=== PATIENT | female | born 1940 | race Caucasian/White ===

== ENCOUNTER 2016-11-01 10:48 | Inpatient (IN) | payer OTHER ==
[~2016-11-01] VITALS: Ht 170.2 cm; Wt 68.1 kg
[2016-11-01] MEDS ORDERED: PRT/20 PO (11:39)
[2016-11-01] MEDS ORDERED: VTMD1000 PO (11:39)
[2016-11-01] MEDS ORDERED: SODIUM CHLORIDE 0.9% 1000ML 1,000 ML IV STA (11:39)
[2016-11-01] MEDS ORDERED: MoRPHine SULFATE 2 MG/ML CARP IV STA (11:39)
[2016-11-01] MEDS ORDERED: FENO1CAP PO (11:39)
[2016-11-01] MEDS ORDERED: MULTCHW PO (11:39)
[2016-11-01] MEDS ORDERED: ONDANSETRON INJ 2 MG/ML 2 ML VIAL IV STA (11:39)
[2016-11-01] MEDS ORDERED: ESCI1TAB6 PO (11:39)
[2016-11-01 11:54] LABS: URINE APPEARANCE CLOUDY (CLEAR); URINE BILIRUBIN NEG (NEG); URINE COLOR DK YELLOW; URINE NITRITE NEG (NEG); URINE SPECIFIC GRAVITY 1.024 (1.000-1.030); UROBILINOGEN NEG (NEG)
[2016-11-01 12:10] LABS: MANUAL MICROSCOPIC REQUIRED? NO; REVIEW REQ? NO
[2016-11-01 12:24] LABS: BASO % 0.2 %; BASO ABS # 0.01 K/uL (0-0.2); COMPLETE YES; HEMATOCRIT 34.9 % (37-47); IG% 0.2 %; LYMPH % 14.7 %; MEAN CELL VOLUME 93.6 fL (80-100); MEAN CORPUSCULAR HEMOGLOBIN 33.2 pg (25-34); MEAN CORPUSCULAR HGB CONC 35.5 g/dl (32-36); MEAN PLATELET VOLUME 9.9 fL (7.4-10.4); NEUT % 79.9 %; PLATELET COUNT 131 K/uL (130-400); RED BLOOD COUNT 3.73 M/uL (4.2-5.4); WHITE BLOOD COUNT 5.43 K/uL (4.8-10.8)
[2016-11-01] MEDS ORDERED: PRMVC PV (12:28)
[2016-11-01] MEDS ORDERED: FENO160T PO (12:28)
[2016-11-01] MEDS ORDERED: ESCI10TA17 PO (12:28)
[2016-11-01] MEDS ORDERED: FLUT0.15 NAE (12:28)
[2016-11-01] MEDS ORDERED: DTRSR/10 PO (12:28)
[2016-11-01] MEDS ORDERED: PANT40TA PO (12:28)
[2016-11-01 12:43] LABS: ALT/SGPT 34 U/L (12-78); BLOOD UREA NITROGEN 14 mg/dl (7-18); BUN/CREATININE RATIO 12.5 (10-20); CALCIUM 8.8 mg/dl (8.5-10.1); CARBON DIOXIDE 25 mmol/L (21-32); CHLORIDE 103 mmol/L (98-107); GLUCOSE 103 mg/dl (70-99); POTASSIUM 3.8 mmol/L (3.5-5.1); SODIUM 135 mmol/L (136-145)
[2016-11-01 12:48] LABS: ALKALINE PHOSPHATASE 39 U/L (45-117); AST/SGOT 42 U/L (15-37)
--- NOTE | 2016-11-01 13:15 | DIAGNOSTIC IMAGING REPORT ---
CHEST 2 VIEWS ROUTINE CLINICAL HISTORY: Right upper quadrant abdominal pain. COMPARISON STUDY: No previous studies for comparison. FINDINGS: Lung volumes are normal. Lungs are clear. No pneumothorax or pleural effusion is present. Cardiac size is normal. Mediastinal contours are normal. There is no evidence of pulmonary edema. IMPRESSION: No acute cardiopulmonary findings. Electronically signed by: Wei Smart M.D. 11/01/2016 1:14 PM Dictated Date/Time: 11/01/2016 1:13 PM
--- NOTE | 2016-11-01 14:03 | DIAGNOSTIC IMAGING REPORT ---
ABDOMINAL ULTRASOUND, RIGHT UPPER QUADRANT HISTORY: Abdominal pain. COMPARISON: None. FINDINGS: Liver morphology is normal. A 1.1 cm left lobe lesion likely reflects a cyst. Internal echoes within this lesion are likely artifactual. There is no biliary ductal dilatation. The common bile duct measures 6 mm in caliber. The pancreas body is normal. The head and tail are obscured. Gallbladder wall thickness is at the upper limits of normal. No gallstones are identified. There is no pericholecystic fluid. There may be minimal sludge within the gallbladder. There is no right hydronephrosis. IMPRESSION: 1. No gallstones or biliary ductal dilatation. 2. Minimal sludge within the gallbladder with mild gallbladder distention. No convincing evidence for acute cholecystitis. Electronically signed by: Wei Smart M.D. 11/01/2016 2:01 PM Dictated Date/Time: 11/01/2016 1:59 PM
--- NOTE | 2016-11-01 14:03 | EMERGENCY ROOM VISIT NOTE ---
ED Visit Note First contact with patient: 11:03 I have personally evaluated this patient examined her and reviewed the pertinent labs and data. I have discussed the case with Benja Brantley, the physician critical care physician assistant and agree with the plan. Please refer to the PA note. This patient comes in with fever and abdominal pain most in the right upper abdomen. She has no elevation of her white count she does have a fever here. LFTs are not elevated. Ultrasound was obtained and does show some mild thickening and distention but no definite acute cholecystitis. On my exam, she does have some tenderness in the epigastric area. Given the fever I did give her Zosyn 4.5 g IV. We also ordered a CAT scan. Benja Brantley has talked to Dr. Underwood who has requested oral contrast. He has seen the patient in the emergency department. I believe the patient will need to be admitted for further treatment and evaluation.
[2016-11-01] MEDS ORDERED: PIPERACILLIN/TAZOBACTAM 4.5 GM/100ML D5W IV STA (14:37)
--- NOTE | 2016-11-01 17:41 | DIAGNOSTIC IMAGING REPORT ---
CT ABD/PELVIS ORAL CONT ONLY CT DOSE: 327.17 mGy.cm CLINICAL HISTORY: Epigastric and right upper quadrant pain. Fever. TECHNIQUE: Axial images of the abdomen and pelvis were obtained without IV contrast. Oral contrast was administered. COMPARISON STUDY: Right upper quadrant ultrasound performed earlier today. FINDINGS: Linear opacities within visualized portions the lower lungs reflect atelectasis. There is a small hiatal hernia. No pneumatosis, free air or portal venous gas is present. No renal, ureteral or bladder calculi are present. There is no hydronephrosis. There is a suspected right sided extrarenal pelvis. A 1.1 cm hypodense lateral segment hepatic lesion is suboptimally assessed on this exam but shown to likely reflect a cyst on ultrasound. The gallbladder is mildly distended. However, the gallbladder does not deform the anterior abdominal wall. There is no pericholecystic infiltration. Unenhanced images of the spleen, adrenal glands and pancreas are normal. There is no peripancreatic infiltration. There is no evidence for a bowel obstruction. The appendix is not visualized. There is no lymphadenopathy or ascites. No suspicious skeletal lesions are identified. There is a small fat-containing umbilical hernia. IMPRESSION: 1. Mild gallbladder distention without pericholecystic infiltration. The findings are not highly suggestive of acute cholecystitis although a hepatobiliary scan could be obtained if clinically indicated. 2. No urinary calculi or hydronephrosis. 3. No bowel obstruction. 4. Probable fatty infiltration of the liver. Electronically signed by: Wei Smart M.D. 11/01/2016 5:39 PM Dictated Date/Time: 11/01/2016 5:32 PM
[2016-11-01] MEDS ORDERED: ACETAMINOPHEN 500 MG TAB PO STA (18:11)
--- NOTE | 2016-11-01 18:13 | Surgery Consultation ---
Consultation Date of Consultation: Nov 01, 2016. Attending Physician: Tim Vincent MD Reason for Consultation: Abdominal pain History of Present Illness I was asked to 75-year-old female who presented to the emergency room with a complaint of abdominal pain. The patient states that the initial pain that she had been having began about a month ago. The pain has been present to some degree almost all the time although she does have certain periods of time without discomfort. It is initially a dull ache but then she will develop paroxysms of increased intensity in the subcostal regions bilaterally although the right is somewhat worse than the left. She thinks that eating causes the increased discomfort but she has not noted any particular food type that is worse than others. She has not had a change in her bowel habits. There is no melena or hematochezia. She did have a fever although she did not take her temperature. She is passing her urine. Over the last week or 2 she has had intermittent dysuria but no hematuria. She stated that she has had jaundice as a young woman but is never had hepatitis or pancreatitis. She is unsure as to the etiology of the jaundice. At present the pain has resolved. She is also no longer tender. Social History Smoking Status: Never Smoker Smokeless Tobacco Use: No Allergies Coded Allergies: Iodine (Unverified Allergy, Intermediate, HIVES, 11/01/16) Home Medications Scheduled Escitalopram (Lexapro), 10 MG PO DAILY Estrogens, Conjugated (Premarin), 1 GM PV 3XWK Fenofibrate (Tricor), 160 MG PO DAILY Fluticasone Propionate (Nasal) (Flonase Allergy Relief), 2 SPRAYS SARAHI DAILY Oxybutynin Chloride (Oxybutynin Chloride ER), 10 MG PO DAILY Pantoprazole (Protonix), 40 MG PO DAILY Review of Systems Constitutional: + fever (unsure how high) Respiratory: No cough, No sputum Cardiovascular: No chest pain Abdomen: + problem reported (as per HPI) Genitourinary - Female: + problem reported (as per HPI) Hematologic / Lymphatic: No abnormal bleeding/bruising Integumentary: No rash Physical Exam Date Time Temp Pulse Resp B/P (MAP) Pulse Ox O2 Delivery O2 Flow Rate FiO2 11/01/16 17:27 77 18 142/59 93 Room Air 11/01/16 16:50 78 20 130/58 94 Room Air 11/01/16 16:10 80 11/01/16 14:47 81 16 138/80 92 Room Air 11/01/16 14:07 16 137/112 98 153/59 11/01/16 13:20 74 18 143/76 93 Room Air 11/01/16 12:30 139/67 11/01/16 12:28 67 18 93 11/01/16 12:23 73 23 93 11/01/16 12:18 71 20 89 11/01/16 12:15 138/60 11/01/16 12:13 72 18 92 11/01/16 12:09 75 11/01/16 12:00 140/65 11/01/16 10:58 38.1 69 18 117/68 95 Room Air General Appearance: WD/WN Head: normocephalic Neck: supple, no adenopathy Respiratory/Chest: chest non-tender, lungs clear Cardiovascular: regular rate, rhythm Abdomen/GI: normal bowel sounds, soft, no organomegaly, + tenderness (mild tenderness to deep palpation in the right subcostal and left subcostal regions. There are no palpable masses. There is also tenderness in the suprapubic area over the bladder.) Back: normal inspection, no CVA tenderness Skin: normal color Laboratory Results Last 24 Hours Test 11/01/16 11:15 11/01/16 12:05 Urine Color DK YELLOW Urine Appearance CLOUDY Urine pH 6.0 Urine Specific [place] 1.024 Urine Protein 2+ Urine Glucose (UA) NEG Urine Ketones TRACE Urine Occult Blood 2+ Urine Nitrite NEG Urine Bilirubin NEG Urine Urobilinogen NEG Urine Leukocyte Esterase LARGE Urine WBC (Auto) >30 /hpf Urine RBC (Auto) 10-30 /hpf Urine Hyaline Casts (Auto) 1-5 /lpf Urine Epithelial Cells (Auto) 5-10 /lpf Urine Bacteria (Auto) NEG White Blood Count 5.43 K/uL Red Blood Count 3.73 M/uL Hemoglobin 12.4 g/dL Hematocrit 34.9 % Mean Corpuscular Volume 93.6 fL Mean Corpuscular Hemoglobin 33.2 pg Mean Corpuscular Hemoglobin Concent 35.5 g/dl Platelet Count 131 K/uL Mean Platelet Volume 9.9 fL Neutrophils (%) (Auto) 79.9 % Lymphocytes (%) (Auto) 14.7 % Monocytes (%) (Auto) 5.0 % Eosinophils (%) (Auto) 0.0 % Basophils (%) (Auto) 0.2 % Neutrophils # (Auto) 4.34 K/uL Lymphocytes # (Auto) 0.80 K/uL Monocytes # (Auto) 0.27 K/uL Eosinophils # (Auto) 0.00 K/uL Basophils # (Auto) 0.01 K/uL RDW Standard Deviation 46.1 fL RDW Coefficient of Variation 13.4 % Immature Granulocyte % (Auto) 0.2 % Immature Granulocyte # (Auto) 0.01 K/uL Sodium Level 135 mmol/L Potassium Level 3.8 mmol/L Chloride Level 103 mmol/L Carbon Dioxide Level 25 mmol/L Anion Gap 7.0 mmol/L Blood Urea Nitrogen 14 mg/dl Creatinine 1.10 mg/dl Est Creatinine Clear Calc Drug Dose 43.0 ml/min Estimated GFR () 56.9 Estimated GFR (Non- 49.1 BUN/Creatinine Ratio 12.5 Random Glucose 103 mg/dl Calcium Level 8.8 mg/dl Total Bilirubin 0.6 mg/dl Direct Bilirubin 0.2 mg/dl Aspartate Amino Transf (AST/SGOT) 42 U/L Alanine Aminotransferase (ALT/SGPT) 34 U/L Alkaline Phosphatase 39 U/L Troponin I < 0.015 ng/ml Total Protein 6.9 gm/dl Albumin 3.6 gm/dl Lipase 169 U/L ABDOMINAL ULTRASOUND, RIGHT UPPER QUADRANT HISTORY: Abdominal pain. COMPARISON: None. FINDINGS: Liver morphology is normal. A 1.1 cm left lobe lesion likely reflects a cyst. Internal echoes within this lesion are likely artifactual. There is no biliary ductal dilatation. The common bile duct measures 6 mm in caliber. The pancreas body is normal. The head and tail are obscured. Gallbladder wall thickness is at the upper limits of normal. No gallstones are identified. There is no pericholecystic fluid. There may be minimal sludge within the gallbladder. There is no right hydronephrosis. IMPRESSION: 1. No gallstones or biliary ductal dilatation. 2. Minimal sludge within the gallbladder with mild gallbladder distention. No convincing evidence for acute cholecystitis. CT ABD/PELVIS ORAL CONT ONLY CT DOSE: 327.17 mGy.cm CLINICAL HISTORY: Epigastric and right upper quadrant pain. Fever. TECHNIQUE: Axial images of the abdomen and pelvis were obtained without IV contrast. Oral contrast was administered. COMPARISON STUDY: Right upper quadrant ultrasound performed earlier today. FINDINGS: Linear opacities within visualized portions the lower lungs reflect atelectasis. There is a small hiatal hernia. No pneumatosis, free air or portal venous gas is present. No renal, ureteral or bladder calculi are present. There is no hydronephrosis. There is a suspected right sided extrarenal pelvis. A 1.1 cm hypodense lateral segment hepatic lesion is suboptimally assessed on this exam but shown to likely reflect a cyst on ultrasound. The gallbladder is mildly distended. However, the gallbladder does not deform the anterior abdominal wall. There is no pericholecystic infiltration. Unenhanced images of the spleen, adrenal glands and pancreas are normal. There is no peripancreatic infiltration. There is no evidence for a bowel obstruction. The appendix is not visualized. There is no lymphadenopathy or ascites. No suspicious skeletal lesions are identified. There is a small fat-containing umbilical hernia. IMPRESSION: 1. Mild gallbladder distention without pericholecystic infiltration. The findings are not highly suggestive of acute cholecystitis although a hepatobiliary scan could be obtained if clinically indicated. 2. No urinary calculi or hydronephrosis. 3. No bowel obstruction. 4. Probable fatty infiltration of the liver. Assessment & Plan This patient has abdominal pain and fever. Her tenderness is more in the lower abdomen and suprapubic area. She does have white cells and red cells in her urine as well as leukocyte esterase. This was related to a urinary tract infection. She does have right upper quadrant pain that she has had for about a month that is intermittent and may be exacerbated by eating. There was sludge in her gallbladder but there is no evidence of acute cholecystitis. Biliary scan may be in order. There is no immediate surgical intervention necessary at this time. Thank you for allowing me to see this patient and participate in her care. I will follow with you.
[2016-11-01] MEDS ORDERED: ACETAMINOPHEN IV 650 MG in EMPTY BAG 0 ML IV PRN (19:00)
[2016-11-01] MEDS ORDERED: ALUMINUM/MAGNESIUM/SIMETH (MAALOX MAX) 30 ML UDC PO PRN (19:00)
[2016-11-01] MEDS ORDERED: MAGNESIUM HYDROXIDE SUSP 30 ML UDC PO PRN (19:00)
--- NOTE | 2016-11-01 19:05 | History and Physical ---
History & Physical Date & Time of Service: Nov 01, 2016 at 18:57 Chief Complaint: Pain In Stomach Towards Right Side Primary Care Physician: Teo Serrano MD History of Present Illness The patient presents to the ER with episodic abdominal pain for last few months. She had fairly complete evaluation and there was initially some concern for cholecystitis. The gallbladder does contain sludge and is mildly distended, however there is no pericholecystic fluid common bile duct dilatation elevation of blood cell count. Clinically her pain is more central, she is a markedly abnormal urinalysis, and a fever of 39C. The patient was evaluated in the ER by surgery, he did not feel she had an acute abdomen or acute cholecystitis, there was mention of a HIDA scan however the patient has normal liver function tests and I personally spoke with Dr. Underwood and he does not feel we perform a HIDA scan over the weekend but only if her clinical situation would correlate more with cholecystitis. In the room the patient is sleepy she received some pain medication and Tylenol and over the last few days because of nausea and vomiting she has not been sleeping well. The patient denies that her vomitus over the last 2 days contain any blood or coffee-ground and she had brown loose stools this a.m. She denies dysuria or hematuria or urinary changes decreased in amount. Past Medical/Surgical History Urinary urgency GERD dyslipidemia depression allergic rhinitis Family History She is a family history of hypertension Social History Smoking Status: Never Smoker Smokeless Tobacco Use: No Allergies Coded Allergies: Iodine (Unverified Allergy, Intermediate, HIVES, 11/01/16) Home Medications Scheduled Escitalopram (Lexapro), 10 MG PO DAILY Estrogens, Conjugated (Premarin), 1 GM PV 3XWK Fenofibrate (Tricor), 160 MG PO DAILY Fluticasone Propionate (Nasal) (Flonase Allergy Relief), 2 SPRAYS SARAHI DAILY Oxybutynin Chloride (Oxybutynin Chloride ER), 10 MG PO DAILY Pantoprazole (Protonix), 40 MG PO DAILY Review of Systems ROS: well nourished well developed No double vision blurry vision No problems with speech or swallowing No palpitations, chest pain or pressure No Wheezing or breathing issues Moderate central abdominal pain nausea vomiting diarrhea but no changes in appetite or weight No burning urine urine frequency or changes in color but less urine No focal joint pain or muscle pain No skin rashes gross oral lesions No unusual bruising or bleeding No focused back pain or numbness or loss of strength No changes in memory or confusion Physical Exam Vital Signs Date Time Temp Pulse Resp B/P (MAP) Pulse Ox O2 Delivery O2 Flow Rate FiO2 11/01/16 18:04 39.5 11/01/16 17:27 77 18 142/59 93 Room Air 11/01/16 16:50 78 20 130/58 94 Room Air 11/01/16 16:10 80 11/01/16 14:47 81 16 138/80 92 Room Air 11/01/16 14:07 16 137/112 98 153/59 11/01/16 13:20 74 18 143/76 93 Room Air 11/01/16 12:30 139/67 11/01/16 12:28 67 18 93 11/01/16 12:23 73 23 93 11/01/16 12:18 71 20 89 11/01/16 12:15 138/60 11/01/16 12:13 72 18 92 11/01/16 12:09 75 11/01/16 12:00 140/65 11/01/16 10:58 38.1 69 18 117/68 95 Room Air General Appearance: WD/WN, + mild distress Head: normocephalic, atraumatic Eyes: PERRL, EOMI Neck: supple, thyroid normal Respiratory/Chest: chest non-tender, lungs clear, normal breath sounds Cardiovascular: regular rate, rhythm, no murmur Abdomen/GI: normal bowel sounds, soft, + tenderness (centrally tender in epigastrium and suprapubic area no rebound mild guarding) Back: no CVA tenderness, no muscle spasm, normal range of motion Extremities/Musculoskelatal: no pedal edema, normal range of motion Neurologic/Psych: alert, oriented x 3 Skin: normal color, warm/dry, no rash Diagnostics Laboratory Results Results Past 24 Hours Test 11/01/16 11:15 11/01/16 12:05 Range/Units Urine Color DK YELLOW Urine Appearance CLOUDY CLEAR Urine pH 6.0 4.5-7.5 Urine Specific [place] 1.024 1.000-1.030 Urine Protein 2+ NEG Urine Glucose (UA) NEG NEG Urine Ketones TRACE NEG Urine Occult Blood 2+ NEG Urine Nitrite NEG NEG Urine Bilirubin NEG NEG Urine Urobilinogen NEG NEG Urine Leukocyte Esterase LARGE NEG Urine WBC (Auto) >30 0-5 /hpf Urine RBC (Auto) 10-30 0-4 /hpf Urine Hyaline Casts (Auto) 1-5 0-5 /lpf Urine Epithelial Cells (Auto) 5-10 0-5 /lpf Urine Bacteria (Auto) NEG NEG White Blood Count 5.43 4.8-10.8 K/uL Red Blood Count 3.73 4.2-5.4 M/uL Hemoglobin 12.4 12.0-16.0 g/dL Hematocrit 34.9 37-47 % Mean Corpuscular Volume 93.6 80-100 fL Mean Corpuscular Hemoglobin 33.2 25-34 pg Mean Corpuscular Hemoglobin Concent 35.5 32-36 g/dl Platelet Count 131 130-400 K/uL Mean Platelet Volume 9.9 7.4-10.4 fL Neutrophils (%) (Auto) 79.9 % Lymphocytes (%) (Auto) 14.7 % Monocytes (%) (Auto) 5.0 % Eosinophils (%) (Auto) 0.0 % Basophils (%) (Auto) 0.2 % Neutrophils # (Auto) 4.34 1.4-6.5 K/uL Lymphocytes # (Auto) 0.80 1.2-3.4 K/uL Monocytes # (Auto) 0.27 0.11-0.59 K/uL Eosinophils # (Auto) 0.00 0-0.5 K/uL Basophils # (Auto) 0.01 0-0.2 K/uL RDW Standard Deviation 46.1 36.4-46.3 fL RDW Coefficient of Variation 13.4 11.5-14.5 % Immature Granulocyte % (Auto) 0.2 % Immature Granulocyte # (Auto) 0.01 0.00-0.02 K/uL Sodium Level 135 136-145 mmol/L Potassium Level 3.8 3.5-5.1 mmol/L Chloride Level 103 98-107 mmol/L Carbon Dioxide Level 25 21-32 mmol/L Anion Gap 7.0 3-11 mmol/L Blood Urea Nitrogen 14 7-18 mg/dl Creatinine 1.10 0.60-1.20 mg/dl Est Creatinine Clear Calc Drug Dose 43.0 ml/min Estimated GFR () 56.9 Estimated GFR (Non- 49.1 BUN/Creatinine Ratio 12.5 10-20 Random Glucose 103 70-99 mg/dl Calcium Level 8.8 8.5-10.1 mg/dl Total Bilirubin 0.6 0.2-1 mg/dl Direct Bilirubin 0.2 0-0.2 mg/dl Aspartate Amino Transf (AST/SGOT) 42 15-37 U/L Alanine Aminotransferase (ALT/SGPT) 34 12-78 U/L Alkaline Phosphatase 39 45-117 U/L Troponin I < 0.015 0-0.045 ng/ml Total Protein 6.9 6.4-8.2 gm/dl Albumin 3.6 3.4-5.0 gm/dl Lipase 169 73-393 U/L Microbiology Results 11/01/16 Blood Culture, Received Pending 11/01/16 Blood Culture, Received Pending Diagnostic Radiology Ultrasound and CT of the abdomen showed biliary sludge no signs of acute cholecystitis CXR normal other (normal sinus rhythm inferior T-wave inversion nonspecific) Impression Assessment and Plan 75-year-old female who presents with fever, initial concerns for cholecystitis are not supported, abnormal urinalysis. The patient was begun on Zosyn and we will continue this for possible UTI and the beginnings of SIRS. We will hydrate with normal saline urine and blood cultures pending The patient had a surgical consult in the ER recommends HIDA scan if LFTs would worsen or clinical picture correlates with acute cholecystitis GERD continue her Protonix Maintain an antidepressant medication Heparin for DVT prevention VTE Prophylaxis VTE Risk Assessment Done? Y/N: Yes Risk Level: Moderate
[2016-11-01] MEDS ORDERED: PIPERACILL/TAZOBAC CONSULT ACTIVE PRN (19:15)
[2016-11-01 19:18] LABS: INR 1.1 (0.9-1.1); PARTIAL THROMBOPLASTIN RATIO 1.1; PROTHROMBIN TIME (PATIENT) 11.9 SECONDS (9.0-12.0)
--- NOTE | 2016-11-01 19:20 | EMERGENCY ROOM VISIT NOTE ---
ED Visit Note First contact with patient: 11:03 Chief Complaint: I think my gallbladder is not working right. History of Present Illness: Ms. Rubin is a 75 year-old white female who ambulates into the ED accompanied by her complaining of upper abdominal pain. Historically patient reports she has been having ongoing upper abdominal pain for approximately 3 months. Her has been episodic and not severe. She has not followed up for evaluation prior to today's ED visit. Additionally she does report that she has been also having increased urinary frequency and was seen by a urologist and has been prescribed Premarin for her symptoms. Since starting this medication she reports she is feeling better. Patient reports a gradual onset of upper abdominal pain, with epigastric and right sided prominence, that started approximately 18 hours ago. Since that time the pain has been gradually increasing in intensity and has also waxed and waned in intensity but she has not been pain-free. The pain is currently described as achy sensation and then her discomforts by spikes and her discomfort becomes crampy. She is rating her discomfort 5/10. The pain is radiating through the abdomen and into the thoracic back. The pain worsens with eating and standing. Her pain decreases when she is lying down either supine or semierect. She reports taking acetaminophen last night and had mild relief of her discomfort. Associated with her pain she has been intermittently nauseated but has not vomited, increased urination without burning or hematuria and she reports last night she felt febrile but did not take her temperature. She denies chills, sweats, skin eruptions, skin color changes, upper respiratory tract symptoms, shortness of breath, chest pain, diarrhea, constipation, rectal bleeding, black/tarry stools, urinary symptoms, hematuria, vaginal bleeding, vaginal discharge, flank pain. Review of Systems: As noted above in history of present illness. All body systems were reviewed and found to be negative as noted above. Past Medical History: As previously noted, GERD, ongoing urinary symptoms; has seen a specialist and testing is continual and no cause has been identified for increased urinary frequency, status post tubal ligation and bunionectomy. Current Medications: Flonase, Lexapro, Premarin, TriCor, Oxybutynin, Protonix. Allergies to Medications: Iodine. Social History: Patient is currently employed; she lives with her and feels safe in her home environment; she denies tobacco and alcohol use. Physical Examination: Vital Signs: Date Time Temp Pulse Resp B/P (MAP) Pulse Ox O2 Delivery O2 Flow Rate FiO2 11/01/16 18:04 39.5 11/01/16 17:27 77 18 142/59 93 Room Air 11/01/16 16:50 78 20 130/58 94 Room Air 11/01/16 16:10 80 11/01/16 14:47 81 16 138/80 92 Room Air 11/01/16 14:07 16 137/112 98 153/59 11/01/16 13:20 74 18 143/76 93 Room Air 11/01/16 12:30 139/67 11/01/16 12:28 67 18 93 11/01/16 12:23 73 23 93 11/01/16 12:18 71 20 89 11/01/16 12:15 138/60 11/01/16 12:13 72 18 92 11/01/16 12:09 75 11/01/16 12:00 140/65 11/01/16 10:58 38.1 69 18 117/68 95 Room Air GENERAL: 75-year-old female in mild distress due to pain, nontoxic-appearing, febrile and hemodynamically stable. NEUROLOGICAL: Awake, alert and oriented to person, place and time. Answering questions appropriately and following commands. Normal gait. Good hand eye coordination. SKIN: Warm, dry and pink. No soft tissue eruptions or trauma noted. HEENT: Atraumatic and normocephalic. PERRLA. Sclera white and conjunctiva pink. Airway patent. Pharynx is nonerythematous or edematous. Speech normal. No lymphadenopathy. Trachea midline. No jugular venous distention. BACK: No tenderness over the bony spine. No CVA tenderness. THORAX: Lungs sounds are clear to auscultation and equal bilaterally with symmetrical chest wall. No wheezing, rales or rhonchi. No crepitus, tenderness , subcutaneous air or deformities noted. HEART: Regular rate and rhythm. No gallops, rubs or murmurs are appreciated. ABDOMEN: Flat and soft with moderate tenderness in the epigastrium and right upper quadrant and mild tenderness in the left upper quadrant and left lower quadrant. Positive bowel sounds in all quadrants. No guarding, rigidity or organomegaly. EXTREMITIES: Moves all extremities well on command and with purpose. All distal neurovascular statuses are intact and equal bilaterally. ED Course: Patient is assessed as noted above. Patient's medication list was reviewed. Laboratory Testing: Test 11/01/16 11:15 11/01/16 12:05 Range/Units Urine Color DK YELLOW Urine Appearance CLOUDY CLEAR Urine pH 6.0 4.5-7.5 Urine Specific [place] 1.024 1.000-1.030 Urine Protein 2+ NEG Urine Glucose (UA) NEG NEG Urine Ketones TRACE NEG Urine Occult Blood 2+ NEG Urine Nitrite NEG NEG Urine Bilirubin NEG NEG Urine Urobilinogen NEG NEG Urine Leukocyte Esterase LARGE NEG Urine WBC (Auto) >30 0-5 /hpf Urine RBC (Auto) 10-30 0-4 /hpf Urine Hyaline Casts (Auto) 1-5 0-5 /lpf Urine Epithelial Cells (Auto) 5-10 0-5 /lpf Urine Bacteria (Auto) NEG NEG White Blood Count 5.43 4.8-10.8 K/uL Red Blood Count 3.73 4.2-5.4 M/uL Hemoglobin 12.4 12.0-16.0 g/dL Hematocrit 34.9 37-47 % Mean Corpuscular Volume 93.6 80-100 fL Mean Corpuscular Hemoglobin 33.2 25-34 pg Mean Corpuscular Hemoglobin Concent 35.5 32-36 g/dl Platelet Count 131 130-400 K/uL Mean Platelet Volume 9.9 7.4-10.4 fL Neutrophils (%) (Auto) 79.9 % Lymphocytes (%) (Auto) 14.7 % Monocytes (%) (Auto) 5.0 % Eosinophils (%) (Auto) 0.0 % Basophils (%) (Auto) 0.2 % Neutrophils # (Auto) 4.34 1.4-6.5 K/uL Lymphocytes # (Auto) 0.80 1.2-3.4 K/uL Monocytes # (Auto) 0.27 0.11-0.59 K/uL Eosinophils # (Auto) 0.00 0-0.5 K/uL Basophils # (Auto) 0.01 0-0.2 K/uL RDW Standard Deviation 46.1 36.4-46.3 fL RDW Coefficient of Variation 13.4 11.5-14.5 % Immature Granulocyte % (Auto) 0.2 % Immature Granulocyte # (Auto) 0.01 0.00-0.02 K/uL Sodium Level 135 136-145 mmol/L Potassium Level 3.8 3.5-5.1 mmol/L Chloride Level 103 98-107 mmol/L Carbon Dioxide Level 25 21-32 mmol/L Anion Gap 7.0 3-11 mmol/L Blood Urea Nitrogen 14 7-18 mg/dl Creatinine 1.10 0.60-1.20 mg/dl Est Creatinine Clear Calc Drug Dose 43.0 ml/min Estimated GFR () 56.9 Estimated GFR (Non- 49.1 BUN/Creatinine Ratio 12.5 10-20 Random Glucose 103 70-99 mg/dl Calcium Level 8.8 8.5-10.1 mg/dl Total Bilirubin 0.6 0.2-1 mg/dl Direct Bilirubin 0.2 0-0.2 mg/dl Aspartate Amino Transf (AST/SGOT) 42 15-37 U/L Alanine Aminotransferase (ALT/SGPT) 34 12-78 U/L Alkaline Phosphatase 39 45-117 U/L Troponin I < 0.015 0-0.045 ng/ml Total Protein 6.9 6.4-8.2 gm/dl Albumin 3.6 3.4-5.0 gm/dl Lipase 169 73-393 U/L Blood Culture: Pending. Urine Culture: Pending. Chest X-Rays: Was read by myself and the radiologist and shows no acute infiltrates, effusions or pneumothorax. Normal heart silhouette and bony anatomy. No free air under the diaphragm. Right Upper Quadrant Ultrasound: Was reviewed by myself and read by the radiologist showing no gallstones or biliary duct dilatation, minimal sludge with mild gallbladder distention. Oral Contrast Abdominal/Pelvic CT: Was reviewed by myself and read by the radiologist showing mild gallbladder distention without infiltration, no uterine calculus or hydronephrosis, no bowel obstruction and probable fatty infiltration of the liver. EKG: Normal sinus rhythm with a ventricular rate of 71 bpm. Normal axis, intervals and complexes. No acute ST changes indicating ischemia, injury or infarction. Patient was hydrated with normal saline and initially received 2 mg of morphine IV for pain and 4 mg of Zofran IV for nausea. Patient was reassessed multiple times during her stay in the emergency department. Patient's case was reviewed with Dr. Vincent; inability assessed the patient we agreed on diagnostic approach, treatment, disposition and plan. Dr. Vincent ordered the patient to have 3.375 g of Zosyn IV for antibiotic coverage. Patient's case was reviewed with Dr. Underwood, general surgery; he independently assessed the patient and felt the patient wasn't not an immediate surgical candidate and felt she needed a biliary scan. Patient was given 1 g of Tylenol by mouth for her fever. Once again patient's case was reviewed with Dr. Vincent and we agreed because she was febrile she should come into the hospital for at least an observation stay if not admission and have a biliary scan done. Patient's case was consulted with case management and Dr. Zuleta for medical observation/admission. Patient was educated about today's findings. Clinical Impression: Fever. Right upper quadrant pain. Questionable biliary colic. Decision-Making: Initially my differential diagnosis I considered acute coronary syndrome, pneumonia, perforated viscus, cholecystectomy, pancreatitis and other causes. Disposition and Plan: Patient be brought in the hospital by the [facility] hospitalist; please see their notes and orders for final disposition and plan.
[2016-11-01 19:54] VITALS: BP 126/67; PULSE 82; TEMP 37.5; O2SAT 94; Ht 170.2 cm; Wt 68.1 kg
[2016-11-01] MEDS: SODIUM CHLORIDE 0.9% 1000ML 1,000 ML IV SCH (20:25)
[2016-11-01] MEDS: ONDANSETRON INJ 2 MG/ML 2 ML VIAL IV PRN (20:29)
[2016-11-01] MEDS: PIPERACILL/TAZOBAC IV 3.375 GM in DEXTROSE 5% 100ML 100 ML IV SCH (20:59)
[2016-11-01] MEDS: PANTOprazole SOD 40 MG TAB PO SCH (21:00)
[2016-11-01] MEDS: HEPARIN SOD 5000 UNIT/0.5 ML CARP SQ SCH (21:04)
[2016-11-01 23:56] VITALS: BP 112/57; PULSE 66; TEMP 37.3; O2SAT 94
[2016-11-02] MEDS: PIPERACILL/TAZOBAC IV 3.375 GM in DEXTROSE 5% 100ML 100 ML IV SCH ×3 (04:02→19:58)
[2016-11-02] MEDS: SODIUM CHLORIDE 0.9% 1000ML 1,000 ML IV SCH ×2 (04:07→15:26)
[2016-11-02] MEDS: ACETAMINOPHEN 325 MG TAB PO PRN ×2 (04:07→18:20)
[2016-11-02 06:13] LABS: HEMATOCRIT 34.4 % (37-47); MEAN CELL VOLUME 93.2 fL (80-100); MEAN CORPUSCULAR HEMOGLOBIN 32.2 pg (25-34); MEAN CORPUSCULAR HGB CONC 34.6 g/dl (32-36); PLATELET COUNT 127 K/uL (130-400); RED BLOOD COUNT 3.69 M/uL (4.2-5.4); WHITE BLOOD COUNT 5.44 K/uL (4.8-10.8)
[2016-11-02 06:55] LABS: BUN/CREATININE RATIO 9.4 (10-20); CALCIUM 8.4 mg/dl (8.5-10.1); CREATININE 1.1 mg/dl (0.60-1.20); POTASSIUM 3.3 mmol/L (3.5-5.1)
[2016-11-02 06:57] LABS: ALB/GLOB RATIO 1.1 (0.9-2)
[2016-11-02] MEDS: FLUTICASONE PROPIONATE NA SPR 16 GM BTL NAE SCH (07:52)
[2016-11-02] MEDS: PANTOprazole SOD 40 MG TAB PO SCH ×2 (07:52→19:58)
[2016-11-02] MEDS: ESCITALOPRAM OXALATE 10 MG TAB PO SCH (07:53)
[2016-11-02] MEDS: OXYBUTYNIN CHLORIDE 5 MG TABCR PO SCH (07:53)
[2016-11-02 07:56] VITALS: BP 98/56; PULSE 61; TEMP 36.4; O2SAT 95
[2016-11-02] MEDS ORDERED: POTASSIUM CHLORIDE 10 MEQ TABCR PO STA (08:03)
[2016-11-02] MEDS: HEPARIN SOD 5000 UNIT/0.5 ML CARP SQ SCH ×2 (08:14→20:01)
--- NOTE | 2016-11-02 11:11 | Surgery Progress Note ---
Surgery Progress Note Date of Service Nov 02, 2016. Subjective No nausea, No vomiting Abdominal soreness throughout Objective Vital Signs: Date Time Temp Pulse Resp B/P (MAP) Pulse Ox O2 Delivery O2 Flow Rate FiO2 11/02/16 07:56 36.4 61 16 98/56 (70) 95 Room Air 11/01/16 23:56 37.3 66 18 112/57 (75) 94 Room Air 11/01/16 19:54 37.5 82 20 126/67 94 Room Air 11/01/16 19:10 86 18 131/66 93 Room Air 11/01/16 18:04 39.5 11/01/16 17:27 77 18 142/59 93 Room Air 11/01/16 16:50 78 20 130/58 94 Room Air 11/01/16 16:10 80 11/01/16 14:47 81 16 138/80 92 Room Air 11/01/16 14:07 16 137/112 98 153/59 11/01/16 13:20 74 18 143/76 93 Room Air 11/01/16 12:30 139/67 11/01/16 12:28 67 18 93 11/01/16 12:23 73 23 93 11/01/16 12:18 71 20 89 11/01/16 12:15 138/60 11/01/16 12:13 72 18 92 11/01/16 12:09 75 11/01/16 12:00 140/65 11/01/16 10:58 38.1 69 18 117/68 95 Room Air Abdomen: normal bowel sounds, non distended, + tenderness (throughout with no site predominating) Laboratory Results: Results Past 24 Hours Test 11/01/16 11:15 11/01/16 12:05 11/02/16 05:40 Range/Units Urine Color DK YELLOW Urine Appearance CLOUDY CLEAR Urine pH 6.0 4.5-7.5 Urine Specific [place] 1.024 1.000-1.030 Urine Protein 2+ NEG Urine Glucose (UA) NEG NEG Urine Ketones TRACE NEG Urine Occult Blood 2+ NEG Urine Nitrite NEG NEG Urine Bilirubin NEG NEG Urine Urobilinogen NEG NEG Urine Leukocyte Esterase LARGE NEG Urine WBC (Auto) >30 0-5 /hpf Urine RBC (Auto) 10-30 0-4 /hpf Urine Hyaline Casts (Auto) 1-5 0-5 /lpf Urine Epithelial Cells (Auto) 5-10 0-5 /lpf Urine Bacteria (Auto) NEG NEG White Blood Count 5.43 5.44 4.8-10.8 K/uL Red Blood Count 3.73 3.69 4.2-5.4 M/uL Hemoglobin 12.4 11.9 12.0-16.0 g/dL Hematocrit 34.9 34.4 37-47 % Mean Corpuscular Volume 93.6 93.2 80-100 fL Mean Corpuscular Hemoglobin 33.2 32.2 25-34 pg Mean Corpuscular Hemoglobin Concent 35.5 34.6 32-36 g/dl Platelet Count 131 127 130-400 K/uL Mean Platelet Volume 9.9 10.0 7.4-10.4 fL Neutrophils (%) (Auto) 79.9 % Lymphocytes (%) (Auto) 14.7 % Monocytes (%) (Auto) 5.0 % Eosinophils (%) (Auto) 0.0 % Basophils (%) (Auto) 0.2 % Neutrophils # (Auto) 4.34 1.4-6.5 K/uL Lymphocytes # (Auto) 0.80 1.2-3.4 K/uL Monocytes # (Auto) 0.27 0.11-0.59 K/uL Eosinophils # (Auto) 0.00 0-0.5 K/uL Basophils # (Auto) 0.01 0-0.2 K/uL RDW Standard Deviation 46.1 45.8 36.4-46.3 fL RDW Coefficient of Variation 13.4 13.3 11.5-14.5 % Immature Granulocyte % (Auto) 0.2 % Immature Granulocyte # (Auto) 0.01 0.00-0.02 K/uL Prothrombin Time 11.9 9.0-12.0 SECONDS Prothromb Time International Ratio 1.1 0.9-1.1 Activated Partial Thromboplast Time 28.5 21.0-31.0 SECONDS Partial Thromboplastin Ratio 1.1 Sodium Level 135 139 136-145 mmol/L Potassium Level 3.8 3.3 3.5-5.1 mmol/L Chloride Level 103 107 98-107 mmol/L Carbon Dioxide Level 25 25 21-32 mmol/L Anion Gap 7.0 7.0 3-11 mmol/L Blood Urea Nitrogen 14 10 7-18 mg/dl Creatinine 1.10 1.10 0.60-1.20 mg/dl Est Creatinine Clear Calc Drug Dose 43.0 43.0 ml/min Estimated GFR () 56.9 56.9 Estimated GFR (Non- 49.1 49.1 BUN/Creatinine Ratio 12.5 9.4 10-20 Random Glucose 103 114 70-99 mg/dl Calcium Level 8.8 8.4 8.5-10.1 mg/dl Total Bilirubin 0.6 0.8 0.2-1 mg/dl Direct Bilirubin 0.2 0-0.2 mg/dl Aspartate Amino Transf (AST/SGOT) 42 65 15-37 U/L Alanine Aminotransferase (ALT/SGPT) 34 42 12-78 U/L Alkaline Phosphatase 39 36 45-117 U/L Troponin I < 0.015 0-0.045 ng/ml Total Protein 6.9 6.1 6.4-8.2 gm/dl Albumin 3.6 3.2 3.4-5.0 gm/dl Lipase 169 73-393 U/L Globulin 2.9 2.5-4.0 gm/dl Albumin/Globulin Ratio 1.1 0.9-2 Microbiology Results 11/01/16 Blood Culture - Preliminary, Resulted Gram Positive Bacilli 11/01/16 Blood Culture, Received Pending 11/02/16 C.difficile Toxin B Gene (PCR), Received Pending 11/02/16 Urine Culture, Received Pending Assessment & Plan Blood cultures noted Improved today Continue antibiotics Await urin culture
--- NOTE | 2016-11-02 13:47 | Progress Note ---
Subjective Date of Service: Nov 02, 2016. Subjective Pt evaluation today including: conversation w/ patient, physical exam, chart review, lab review, review of studies, review of inpatient medication list Pt resting comfortably in bed Denies any worsening pain States pain was located in center of abdomen yesterday but improved today Review of Systems Constitutional: No fever, No chills, No sweats, No weight loss, No weakness ENT: No hearing loss, No unusual epistaxis, No nasal symptoms, No sore throat Respiratory: No cough, No sputum, No wheezing, No shortness of breath, No dyspnea on exertion Cardiac: No chest pain, No orthopnea, No PND, No edema Abdomen: No pain, No nausea, No vomiting, No diarrhea, No constipation Musculoskeletal: No joint pain, No muscle pain, No swelling Female : No dysuria, No urinary frequency, No hematuria, No incontinence Neurologic: No memory loss, No paralysis, No weakness, No numbness/tingling Psychiatric: No depression symptoms, No anhedonism, No anxiety, No insomnia Skin: No rash, No itch Objective Vital Signs Date Time Temp Pulse Resp B/P (MAP) Pulse Ox O2 Delivery O2 Flow Rate FiO2 11/02/16 08:00 Room Air 11/02/16 07:56 36.4 61 16 98/56 (70) 95 Room Air 11/01/16 23:56 37.3 66 18 112/57 (75) 94 Room Air 11/01/16 19:54 37.5 82 20 126/67 94 Room Air 11/01/16 19:10 86 18 131/66 93 Room Air 11/01/16 18:04 39.5 11/01/16 17:27 77 18 142/59 93 Room Air 11/01/16 16:50 78 20 130/58 94 Room Air 11/01/16 16:10 80 11/01/16 14:47 81 16 138/80 92 Room Air 11/01/16 14:07 16 137/112 98 153/59 Physical Exam General Appearance: WD/WN, no apparent distress Eyes: normal inspection, PERRL, EOMI, sclerae normal Neck: supple, no adenopathy, thyroid normal, no JVD Respiratory/Chest: chest non-tender, lungs clear, normal breath sounds, no respiratory distress Cardiovascular: regular rate, rhythm, no edema, no gallop, no JVD Abdomen: normal bowel sounds, non tender, soft, no organomegaly Extremities: normal range of motion, non-tender, normal inspection, no pedal edema Neurologic/Psychiatric: no motor/sensory deficits, alert, normal mood/affect, oriented x 3 Laboratory Results Last 24 Hours Test 11/02/16 05:40 White Blood Count 5.44 K/uL Red Blood Count 3.69 M/uL Hemoglobin 11.9 g/dL Hematocrit 34.4 % Mean Corpuscular Volume 93.2 fL Mean Corpuscular Hemoglobin 32.2 pg Mean Corpuscular Hemoglobin Concent 34.6 g/dl RDW Standard Deviation 45.8 fL RDW Coefficient of Variation 13.3 % Platelet Count 127 K/uL Mean Platelet Volume 10.0 fL Sodium Level 139 mmol/L Potassium Level 3.3 mmol/L Chloride Level 107 mmol/L Carbon Dioxide Level 25 mmol/L Anion Gap 7.0 mmol/L Blood Urea Nitrogen 10 mg/dl Creatinine 1.10 mg/dl Est Creatinine Clear Calc Drug Dose 43.0 ml/min Estimated GFR () 56.9 Estimated GFR (Non- 49.1 BUN/Creatinine Ratio 9.4 Random Glucose 114 mg/dl Calcium Level 8.4 mg/dl Total Bilirubin 0.8 mg/dl Aspartate Amino Transf (AST/SGOT) 65 U/L Alanine Aminotransferase (ALT/SGPT) 42 U/L Alkaline Phosphatase 36 U/L Total Protein 6.1 gm/dl Albumin 3.2 gm/dl Globulin 2.9 gm/dl Albumin/Globulin Ratio 1.1 Assessment and Plan 75-year-old female who presents with fever, ongoing abdominal pain Abd pain more periumbilical in nature, ?cystitis, awating urine cx, blood cx prelim for gram pos bacilli. Pt reports pain improved Cont zosyn at this time Fever overnight Abd CT/gallbladder US reviewed, unlikely cholecystitis, will hold off on HIDA at this time unless worsening AST/ALT or pain Appreciae gen surg recs GERD continue her Protonix Depression continue lexapro Heparin for DVT prevention
[2016-11-02 15:57] VITALS: BP 106/52; PULSE 64; TEMP 37.3; O2SAT 92
[2016-11-02] MEDS ORDERED: NURSING VERBAL MED ORDER ONE (22:15)
[2016-11-02] MEDS ORDERED: hydrOXYzine HCL 25 MG TAB PO ONE (22:45)
[2016-11-02 23:58] VITALS: BP 111/65; PULSE 60; TEMP 36.8; O2SAT 94
[2016-11-03] MEDS: SODIUM CHLORIDE 0.9% 1000ML 1,000 ML IV SCH ×3 (00:37→21:33)
[2016-11-03] MEDS: PIPERACILL/TAZOBAC IV 3.375 GM in DEXTROSE 5% 100ML 100 ML IV SCH ×3 (04:16→19:55)
[2016-11-03 07:01] LABS: BUN/CREATININE RATIO 8.8 (10-20); CALCIUM 7.9 mg/dl (8.5-10.1); CREATININE 0.95 mg/dl (0.60-1.20); POTASSIUM 3.3 mmol/L (3.5-5.1)
[2016-11-03 07:04] LABS: ALB/GLOB RATIO 0.9 (0.9-2)
[2016-11-03 07:28] VITALS: BP 111/51; PULSE 65; TEMP 37; O2SAT 92
[2016-11-03] MEDS ORDERED: POTASSIUM CHLORIDE 20 MEQ TABCR PO ONE (07:30)
[2016-11-03] MEDS: OXYBUTYNIN CHLORIDE 5 MG TABCR PO SCH (07:56)
[2016-11-03] MEDS: PANTOprazole SOD 40 MG TAB PO SCH ×2 (07:56→19:57)
[2016-11-03] MEDS: FLUTICASONE PROPIONATE NA SPR 16 GM BTL NAE SCH (07:56)
[2016-11-03] MEDS: ESCITALOPRAM OXALATE 10 MG TAB PO SCH (07:56)
[2016-11-03 08:00] VITALS: O2SAT 92
[2016-11-03] MEDS: ACETAMINOPHEN 325 MG TAB PO PRN ×2 (08:02→23:21)
[2016-11-03] MEDS: HEPARIN SOD 5000 UNIT/0.5 ML CARP SQ SCH ×2 (08:04→20:01)
--- NOTE | 2016-11-03 10:10 | Hospitalist Progress Note ---
Hospitalist Progress Note Date of Service Nov 03, 2016. Subjective Pt evaluation today including: conversation w/ patient, physical exam, chart review, lab review, review of studies, review of inpatient medication list Voiding: no voiding problems, incontinence (chronic ) Patient states she is feeling well this AM. Slight improvement in symptoms since admission. +epigastric pain- worse w/ eating. Notes coffee makes abdominal pain much worse - improvement with decaf coffee during hospital stay. Known h/o GERD; takes Protonix daily She tolerated breakfast well. +chronic urinary incontinence. Patient denies any fever, chills, sweats, lightheadedness, dizziness, vision changes, CP, palpitations, edema, SOB, wheezing, cough, nausea, vomiting, diarrhea, melena, numbness/tingling, weakness, muscle/joint pain, anxiety/ depression, active bleeding, or new skin discoloration/changes. Medications Current Inpatient Medications Medications (Trade) Dose Ordered Sig/Morgan Route Start Time Stop Time Status Last Admin Dose Admin Escitalopram Oxalate (Lexapro Tab) 10 mg DAILY PO 11/02/16 08:00 12/02/16 08:59 11/03/16 07:56 10 MG Fluticasone Propionate (Flonase Nasal [place]) 2 sprays DAILY SARAHI 11/02/16 08:00 12/02/16 08:59 Oxybutynin Chloride (Ditropan-Xl Tab) 10 mg DAILY PO 11/02/16 08:00 12/02/16 08:59 11/03/16 07:56 10 MG Piperacillin Sod/ Tazobactam Sod 3.375 gm/Dextrose 115 ml @ 28.75 mls/ hr Q8H IV 11/01/16 20:00 11/11/16 19:59 11/03/16 04:16 28.75 MLS/HR Acetaminophen 650 mg/Empty Bag 65 ml @ 260 mls/hr Q6H PRN IV 11/01/16 19:00 12/01/16 18:59 Acetaminophen (Tylenol Tab) 650 mg Q4H PRN PO 11/01/16 19:00 12/01/16 18:59 11/03/16 08:02 650 MG Al Hydrox/Mg Hydrox/Simethicone (Maalox Max Susp) 15 ml Q4H PRN PO 11/01/16 19:00 12/01/16 18:59 11/02/16 18:22 15 ML Magnesium Hydroxide (Milk Of Magnesia Susp) 30 ml Q6H PRN PO 11/01/16 19:00 12/01/16 18:59 Ondansetron HCl (Zofran Inj) 4 mg Q6H PRN IV 11/01/16 19:00 12/01/16 18:59 11/01/16 20:29 4 MG Heparin Sodium (Porcine) (Heparin Sq 5000 Unit/0.5ml) 5,000 unit Q12H SQ 11/01/16 20:00 12/01/16 19:59 11/03/16 08:04 5,000 UNIT Pantoprazole Sodium (Protonix Tab) 40 mg BID PO 11/01/16 20:00 12/01/16 20:59 11/03/16 07:56 40 MG Sodium Chloride 1,000 ml @ 100 mls/hr Q10H IV 11/01/16 19:00 12/01/16 18:59 11/03/16 00:37 100 MLS/HR Piperacillin Sod/ Tazobactam Sod (Consult) 1 ea UD PRN N/A 11/01/16 19:15 12/01/16 19:14 Sucralfate (Carafate Susp) 1 gm QID PO 11/03/16 12:00 12/03/16 11:59 Objective Vital Signs Date Time Temp Pulse Resp B/P (MAP) Pulse Ox O2 Delivery O2 Flow Rate FiO2 11/03/16 08:00 92 Room Air 11/03/16 07:28 37.0 65 16 111/51 (71) 92 11/03/16 00:00 Room Air 11/02/16 23:58 36.8 60 18 111/65 (80) 94 Room Air 11/02/16 20:00 Room Air 11/02/16 16:00 Room Air 11/02/16 15:57 37.3 64 18 106/52 (70) 92 Room Air Physical Exam General Appearance: no apparent distress Eyes: normal inspection, PERRL ENT: hearing grossly normal Neck: supple Respiratory/Chest: lungs clear, no respiratory distress, no accessory muscle use Cardiovascular: regular rate, rhythm Abdomen: normal bowel sounds, soft, + tenderness (ttp at epigastric region ) Extremities: no pedal edema, no calf tenderness Neurologic/Psychiatric: alert, normal mood/affect, oriented x 3 Skin: normal color, warm/dry, no rash Laboratory Results Last 24 Hours Test 11/03/16 05:57 11/03/16 09:40 Sodium Level 144 mmol/L Potassium Level 3.3 mmol/L Chloride Level 112 mmol/L Carbon Dioxide Level 23 mmol/L Anion Gap 9.0 mmol/L Blood Urea Nitrogen 8 mg/dl Creatinine 0.95 mg/dl Est Creatinine Clear Calc Drug Dose 49.8 ml/min Estimated GFR () 67.9 Estimated GFR (Non- 58.6 BUN/Creatinine Ratio 8.8 Random Glucose 86 mg/dl Calcium Level 7.9 mg/dl Total Bilirubin 0.7 mg/dl Aspartate Amino Transf (AST/SGOT) 87 U/L Alanine Aminotransferase (ALT/SGPT) 58 U/L Alkaline Phosphatase 47 U/L Total Protein 5.6 gm/dl Albumin 2.7 gm/dl Globulin 2.9 gm/dl Albumin/Globulin Ratio 0.9 Assessment and Plan 75-year-old female, w/ PMHx of depression, dyslipidemia, urinary urgency, and GERD, who presented w/ fever and ongoing abdominal pain Abdominal pain, etiology uncertain- ?GERD vs. cystitis vs. gallbladder disease: - Admit to med/surg - IV Zosyn (started 11/01) - IV NSS @ 100 ml/hr - C.diff negative - BCx positive x1- growing gram positive bacilli, BCx x1 pending - UCx pending - ESR, CRP, and CSF lactate pending - Will order HIDA scan due to little improvement in symptoms - Gallbladder US on 11/01: No gallstones or biliary ductal dilatation. Minimal sludge within the gallbladder with mild gallbladder distention. No convincing evidence for acute cholecystitis. - Abdominal CT on 11/01: Mild gallbladder distention without pericholecystic infiltration. The findings are not highly suggestive of acute cholecystitis although a hepatobiliary scan could be obtained if clinically indicated. No urinary calculi or hydronephrosis. No bowel obstruction. Probable fatty infiltration of the liver. - General surgery consulted, appreciate recommendations - GI consulted, appreciate recommendations Mild hypokalemia: - Replace w/ PO KCL supplement - Follow PRP and replace PRN GERD: - Continue Protonix 40 mg QAM - Add Carafate QID to see if added benefit to symptoms Depression: Lexapro 10 mg daily Dyslipidemia: Fenofibrate 160 mg daily Urinary urgency: Oxybutynin 10 mg daily GI Prophylaxis: Carafate, Protonix, Maalox PRN, IV Zofran PRN, Colace and/or Milk of Mag PRN DVT prophylaxis: Heparin 5000 units SQ q12 hrs, CRISTIANA and SCDs Code Status: LEVEL I, FULL Dispo: From home, lives w/ - bilingual social worker consulted- discharge to home once medically stable
[2016-11-03] MEDS: SUCRALFATE 1 GM/10 ML UDC PO SCH ×3 (11:37→19:57)
[2016-11-03] MEDS ORDERED: MoRPHine SULFATE 2 MG/ML CARP ONE (15:03)
--- NOTE | 2016-11-03 15:58 | DIAGNOSTIC IMAGING REPORT ---
NUCLEAR MEDICINE HEPATOBILIARY SCAN HISTORY: Pain. Nausea. ?gallbladder disease COMPARISON: CT examination 11/01/2016 TECHNIQUE: Immediately following the intravenous administration of 5.4 mCi Tc-99m Choletec, dynamic anterior abdominal imaging was performed. FINDINGS: Uniform hepatic tracer accumulation is shown. Prompt intrahepatic biliary excretion is seen. Portions of the gallbladder identified on the 80 minute series. Complete opacification gallbladder is not seen despite delayed images. There is good flow of isotope to the small bowel. IMPRESSION: Findings suggestive chronic a calculus cholecystitis. Delayed and incomplete opacification of the gallbladder. Good flow of isotope to the small bowel Electronically signed by: Gama Huston M.D. 11/03/2016 3:57 PM Dictated Date/Time: 11/03/2016 3:53 PM
--- NOTE | 2016-11-03 16:34 | Surgery Progress Note ---
Surgery Progress Note Date of Service Nov 03, 2016. Subjective Post OP Day: hd # 2 + feeling well, + bowel movement (DIARRHEA), No chest pain, No SOB, No nausea, No vomiting Objective Vital Signs: Date Time Temp Pulse Resp B/P (MAP) Pulse Ox O2 Delivery O2 Flow Rate FiO2 11/03/16 08:00 92 Room Air 11/03/16 07:28 37.0 65 16 111/51 (71) 92 11/03/16 00:00 Room Air 11/02/16 23:58 36.8 60 18 111/65 (80) 94 Room Air 11/02/16 20:00 Room Air General Appearance: WD/WN, no apparent distress Head: normocephalic, atraumatic Neck: trachea midline Respiratory/Chest: no respiratory distress, no accessory muscle use Abdomen: non distended, soft, + tenderness (Epigastric and RUQ tenderness on deep palpation, no peritonitis) Laboratory Results: Results Past 24 Hours Test 11/03/16 05:57 11/03/16 09:40 11/03/16 09:55 Range/Units Sodium Level 144 136-145 mmol/L Potassium Level 3.3 3.5-5.1 mmol/L Chloride Level 112 98-107 mmol/L Carbon Dioxide Level 23 21-32 mmol/L Anion Gap 9.0 3-11 mmol/L Blood Urea Nitrogen 8 7-18 mg/dl Creatinine 0.95 0.60-1.20 mg/dl Est Creatinine Clear Calc Drug Dose 49.8 ml/min Estimated GFR () 67.9 Estimated GFR (Non- 58.6 BUN/Creatinine Ratio 8.8 10-20 Random Glucose 86 70-99 mg/dl Calcium Level 7.9 8.5-10.1 mg/dl Total Bilirubin 0.7 0.2-1 mg/dl Aspartate Amino Transf (AST/SGOT) 87 15-37 U/L Alanine Aminotransferase (ALT/SGPT) 58 12-78 U/L Alkaline Phosphatase 47 45-117 U/L Total Protein 5.6 6.4-8.2 gm/dl Albumin 2.7 3.4-5.0 gm/dl Globulin 2.9 2.5-4.0 gm/dl Albumin/Globulin Ratio 0.9 0.9-2 Erythrocyte Sedimentation Rate 9 0-21 mm/hr C-Reactive Protein 9.92 0-0.29 mg/dl Assessment & Plan Acalculous cholecystitis - vitals stable - HIDA scan showing delayed gallbladder filling suggesting acalculous cholecystitis - Total bili and LFTS within normal limits Bacteremia - 1/2 Blood culture positive- gram negative bacilla - urine culture negative Plan: Continue current medical management IV fluids and IV antibiotics Continue pain management as needed HIDA scan is not showing acute cholecystitis or cystic duct obstruction. will continue to follow Dr. Underwood has seen and examined patient, agrees with above.
--- NOTE | 2016-11-03 17:28 | Gastrointestinal Consultation ---
Gastrointestinal Consultation Date of Consultation: Nov 03, 2016 Attending Physician: Dr. Zuleta Consulting Physician: Dr. Conner Reason for Consultation: Intermittent midepigastric abdominal pain History of Present Illness Patient is a 75 year old female who presented to the ER on 11/01 and was admitted for a markedly abnormal UA and questionable acute cholecystitis based on imaging. She was started on Zosyn therapy, as well as an increased dose of Protonix, which she takes at home. Blood cultures have returned positive for Gram + Bacilli. At the time that I saw the patient, she stated that she was feeling somewhat improved from when she was admitted. She states that she has intermittent GERD and does develop epigastric pain, 3-4/10 in intensity, non- radiating, especially following ingestion of a meal. She denies any history of jaundice, acolic stools, dark urine, or pruritus. She does admit to having intermittent fevers over the past few days, but not in the past 24 hours. She denies any dysphagia, odynophagia, hematemesis, melena or hematochezia. She further denies any family history of esophageal or stomach cancer. She has no further complaints. Past Medical/Surgical History Past Medical History: GERD Dyslipidemia Depression Allergic Rhinitis Urinary urgency Past Surgical History: Tubal ligation Bladder Repair Family History Negative for GI malignancy or IBD Social History Smoking Status: Never Smoker Drug Use: none Marital Status: Allergies Coded Allergies: Iodine (Unverified Allergy, Intermediate, HIVES, 11/01/16) Current Medications Home Meds and Scripts Medications Dose Route/Sig Max Daily Dose Days Date Category Flonase Allergy Relief (Fluticasone Propionate (Nasal)) 50 Mcg/Act Spr 2 Sprays SARAHI DAILY 11/01/16 Reported Premarin (Estrogens, Conjugated) 14 Appln/30 Gm Cr 1 Gm PV [id number] 11/01/16 Reported Lexapro (Escitalopram Oxalate) 10 Mg Tab 10 Mg PO DAILY 11/01/16 Reported Tricor (Fenofibrate) 160 Mg Tab 160 Mg PO DAILY 11/01/16 Reported Oxybutynin Chloride ER (Oxybutynin Chloride) 10 Mg Tabcr 10 Mg PO DAILY 11/01/16 Reported Protonix (Pantoprazole Sodium) 40 Mg Tab 40 Mg PO DAILY 11/01/16 Reported Review of Systems Constitutional: + see HPI Eyes: No eye pain ENT: No sore throat Respiratory: No cough, No sputum, No wheezing, No shortness of breath, No dyspnea on exertion Cardiac: No chest pain, No palpitations Abdomen: + pain, No nausea, No vomiting, No diarrhea, No GI bleeding, No dysphagia, No odynophagia, No acolic stools, No jaundice, No dark urine Female : No dysuria, No hematuria Psych: No depression symptoms, No anxiety Heme: No abnormal bleeding/bruising Endo: No fatigue Physical Exam Date Time Temp Pulse Resp B/P (MAP) Pulse Ox O2 Delivery O2 Flow Rate FiO2 11/03/16 08:00 92 Room Air 11/03/16 07:28 37.0 65 16 111/51 (71) 92 11/03/16 00:00 Room Air 11/02/16 23:58 36.8 60 18 111/65 (80) 94 Room Air 11/02/16 20:00 Room Air General Appearance: no apparent distress Eyes: PERRL, EOMI ENT: hearing grossly normal Neck: supple, no adenopathy Respiratory/Chest: lungs clear, normal breath sounds Cardiovascular: regular rate, rhythm, no murmur Abdomen: normal bowel sounds, non tender, soft Extremities: normal inspection, no pedal edema Neurologic/Psych: alert, normal mood/affect, oriented x 3 Skin: normal color Laboratory Results Last 24 Hours Test 11/03/16 05:57 11/03/16 09:40 11/03/16 09:55 Sodium Level 144 mmol/L Potassium Level 3.3 mmol/L Chloride Level 112 mmol/L Carbon Dioxide Level 23 mmol/L Anion Gap 9.0 mmol/L Blood Urea Nitrogen 8 mg/dl Creatinine 0.95 mg/dl Est Creatinine Clear Calc Drug Dose 49.8 ml/min Estimated GFR () 67.9 Estimated GFR (Non- 58.6 BUN/Creatinine Ratio 8.8 Random Glucose 86 mg/dl Calcium Level 7.9 mg/dl Total Bilirubin 0.7 mg/dl Aspartate Amino Transf (AST/SGOT) 87 U/L Alanine Aminotransferase (ALT/SGPT) 58 U/L Alkaline Phosphatase 47 U/L Total Protein 5.6 gm/dl Albumin 2.7 gm/dl Globulin 2.9 gm/dl Albumin/Globulin Ratio 0.9 Erythrocyte Sedimentation Rate 9 mm/hr C-Reactive Protein 9.92 mg/dl Impression Patient is a 75 year old female with Gram + bacteremia, abnormal UA and intermittent epigastric abdominal pain with a history of GERD. Plan Recommend continuing patient on Protonix 40mg PO BID Continue Carafate 1g PO QID AC and HS HIDA Scan just returned with evidence of chronic cholecystitis, will defer to surgery in this regard Continue Zosyn therapy as per primary team secondary to Bacteremia with Gram + Bacilli No need for any emergent invasive testing Consider EGD as outpatient when acute medical issues are resolved [facility] will be covering on November 04. Will resume care on November 05 if patient remains hospitalized.
[2016-11-03 23:58] VITALS: BP 118/67; PULSE 61; TEMP 36.8; O2SAT 97
[2016-11-04] MEDS: PIPERACILL/TAZOBAC IV 3.375 GM in DEXTROSE 5% 100ML 100 ML IV SCH ×3 (03:55→19:52)
[2016-11-04] MEDS: SODIUM CHLORIDE 0.9% 1000ML 1,000 ML IV SCH (06:30)
[2016-11-04 07:15] VITALS: BP 127/74; PULSE 54; TEMP 36.7; O2SAT 94
[2016-11-04 07:58] LABS: HEMATOCRIT 30.4 % (37-47); MEAN CELL VOLUME 92.7 fL (80-100); MEAN CORPUSCULAR HGB CONC 34.5 g/dl (32-36); MEAN PLATELET VOLUME 10.3 fL (7.4-10.4); PLATELET COUNT 140 K/uL (130-400); RED BLOOD COUNT 3.28 M/uL (4.2-5.4); WHITE BLOOD COUNT 3.08 K/uL (4.8-10.8)
[2016-11-04 08:00] VITALS: O2SAT 94
[2016-11-04] MEDS: FLUTICASONE PROPIONATE NA SPR 16 GM BTL NAE SCH (08:00)
[2016-11-04 08:30] LABS: ALB/GLOB RATIO 0.9 (0.9-2); BUN/CREATININE RATIO 8.6 (10-20); CALCIUM 8.3 mg/dl (8.5-10.1); CREATININE 0.93 mg/dl (0.60-1.20); POTASSIUM 3.8 mmol/L (3.5-5.1)
--- NOTE | 2016-11-04 08:39 | Hospitalist Progress Note ---
Hospitalist Progress Note Date of Service Nov 04, 2016. Subjective Pt evaluation today including: conversation w/ patient, physical exam, chart review, lab review, review of studies, conversation w/ [employer] consultant (Dr. Underwood ), review of inpatient medication list Voiding: no voiding problems, no incontinence Patient states she is feeling well this AM. She is eating and drinking OK- admits to improvement in epigastric pain with food intake. She would prefer to have a cholecystectomy inpatient vs scheduling outpatient due to having symptoms for over 2 months and fearful they will return at discharge. Discussed w/ Dr. Underwood- possibly could be completed on . Patient denies any fever, chills, sweats, lightheadedness, dizziness, vision changes, CP, palpitations, edema, SOB, wheezing, cough, nausea, vomiting, diarrhea, urinary symptoms, melena, numbness/tingling, weakness, muscle/joint pain, anxiety/depression, active bleeding, or new skin discoloration/changes. Medications Current Inpatient Medications Medications (Trade) Dose Ordered Sig/Morgan Route Start Time Stop Time Status Last Admin Dose Admin Escitalopram Oxalate (Lexapro Tab) 10 mg DAILY PO 11/02/16 08:00 12/02/16 08:59 11/04/16 08:43 10 MG Fluticasone Propionate (Flonase Nasal [place]) 2 sprays DAILY SARAHI 11/02/16 08:00 12/02/16 08:59 Oxybutynin Chloride (Ditropan-Xl Tab) 10 mg DAILY PO 11/02/16 08:00 12/02/16 08:59 11/04/16 08:43 10 MG Piperacillin Sod/ Tazobactam Sod 3.375 gm/Dextrose 115 ml @ 28.75 mls/ hr Q8H IV 11/01/16 20:00 11/11/16 19:59 11/04/16 03:55 28.75 MLS/HR Acetaminophen 650 mg/Empty Bag 65 ml @ 260 mls/hr Q6H PRN IV 11/01/16 19:00 12/01/16 18:59 Acetaminophen (Tylenol Tab) 650 mg Q4H PRN PO 11/01/16 19:00 12/01/16 18:59 11/03/16 23:21 650 MG Al Hydrox/Mg Hydrox/Simethicone (Maalox Max Susp) 15 ml Q4H PRN PO 11/01/16 19:00 12/01/16 18:59 11/02/16 18:22 15 ML Magnesium Hydroxide (Milk Of Magnesia Susp) 30 ml Q6H PRN PO 11/01/16 19:00 12/01/16 18:59 Ondansetron HCl (Zofran Inj) 4 mg Q6H PRN IV 11/01/16 19:00 12/01/16 18:59 11/01/16 20:29 4 MG Heparin Sodium (Porcine) (Heparin Sq 5000 Unit/0.5ml) 5,000 unit Q12H SQ 11/01/16 20:00 12/01/16 19:59 11/04/16 08:45 5,000 UNIT Pantoprazole Sodium (Protonix Tab) 40 mg BID PO 11/01/16 20:00 12/01/16 20:59 11/04/16 08:43 40 MG Piperacillin Sod/ Tazobactam Sod (Consult) 1 ea UD PRN N/A 11/01/16 19:15 12/01/16 19:14 Sucralfate (Carafate Susp) 1 gm QID PO 11/03/16 12:00 12/03/16 11:59 11/04/16 08:42 1 GM Objective Vital Signs Date Time Temp Pulse Resp B/P (MAP) Pulse Ox O2 Delivery O2 Flow Rate FiO2 11/04/16 07:15 36.7 54 20 127/74 (91) 94 Room Air 11/04/16 00:30 Room Air 11/03/16 23:58 36.8 61 18 118/67 (84) 97 Room Air 11/03/16 16:00 Room Air Physical Exam General Appearance: no apparent distress Eyes: normal inspection, PERRL ENT: hearing grossly normal Neck: supple Respiratory/Chest: lungs clear, no respiratory distress, no accessory muscle use Cardiovascular: regular rate, rhythm Abdomen: normal bowel sounds, non tender, soft Extremities: no pedal edema, no calf tenderness Neurologic/Psychiatric: alert, normal mood/affect, oriented x 3 Skin: normal color, warm/dry, no rash Laboratory Results Last 24 Hours Test 11/03/16 09:55 11/04/16 07:24 Erythrocyte Sedimentation Rate 9 mm/hr C-Reactive Protein 9.92 mg/dl White Blood Count 3.08 K/uL Red Blood Count 3.28 M/uL Hemoglobin 10.5 g/dL Hematocrit 30.4 % Mean Corpuscular Volume 92.7 fL Mean Corpuscular Hemoglobin 32.0 pg Mean Corpuscular Hemoglobin Concent 34.5 g/dl RDW Standard Deviation 48.6 fL RDW Coefficient of Variation 14.2 % Platelet Count 140 K/uL Mean Platelet Volume 10.3 fL Sodium Level 144 mmol/L Potassium Level 3.8 mmol/L Chloride Level 114 mmol/L Carbon Dioxide Level 24 mmol/L Anion Gap 6.0 mmol/L Blood Urea Nitrogen 8 mg/dl Creatinine 0.93 mg/dl Est Creatinine Clear Calc Drug Dose 50.8 ml/min Estimated GFR () 69.7 Estimated GFR (Non- 60.1 BUN/Creatinine Ratio 8.6 Random Glucose 91 mg/dl Calcium Level 8.3 mg/dl Total Bilirubin 0.5 mg/dl Aspartate Amino Transf (AST/SGOT) 97 U/L Alanine Aminotransferase (ALT/SGPT) 66 U/L Alkaline Phosphatase 80 U/L Total Protein 5.6 gm/dl Albumin 2.6 gm/dl Globulin 3.0 gm/dl Albumin/Globulin Ratio 0.9 Assessment and Plan 75-year-old female, w/ PMHx of depression, dyslipidemia, urinary urgency, and GERD, who presented w/ fever and ongoing abdominal pain Abdominal pain, etiology uncertain- ?GERD vs. cystitis vs. gallbladder disease: - Admit to med/surg - IV Zosyn (started 11/01) - Treated w/ IV NSS @ 100 ml/hr x8 bags- d/c'd on 11/04 - C.diff negative - BCx positive x1- growing gram positive bacilli, BCx x1- NGTD -- Repeat BCx pending - UCx- negative - ESR- WNL, CRP- mildly elevated at 9.9 - Lipase- WNL - Gallbladder US on 11/01: No gallstones or biliary ductal dilatation. Minimal sludge within the gallbladder with mild gallbladder distention. No convincing evidence for acute cholecystitis. - Abdominal CT on 11/01: Mild gallbladder distention without pericholecystic infiltration. The findings are not highly suggestive of acute cholecystitis although a hepatobiliary scan could be obtained if clinically indicated. No urinary calculi or hydronephrosis. No bowel obstruction. Probable fatty infiltration of the liver. - HIDA scan on 11/03: Findings suggestive chronic a calculus cholecystitis. Delayed and incomplete opacification of the gallbladder. Good flow of isotope to the small bowel. - General surgery consulted, appreciate recommendations -- Possible cholecystectomy on 11/06 - GI consulted, appreciate recommendations -- Continue Protonix 40 mg BID and Carafate 1 g QID -- f/u outpatient and possible EGD w/ Case Mild hypokalemia- RESOLVED: - Replace w/ PO KCL supplement - Follow PRP and replace PRN GERD: Continue Protonix 40 mg QAM and Carafate QID Depression: Lexapro 10 mg daily Dyslipidemia: Fenofibrate 160 mg daily Urinary urgency: Oxybutynin 10 mg daily GI Prophylaxis: Carafate, Protonix, Maalox PRN, IV Zofran PRN, Colace and/or Milk of Mag PRN DVT prophylaxis: Heparin 5000 units SQ q12 hrs, CRISTIANA and SCDs Code Status: LEVEL I, FULL Dispo: From home, lives w/ - social and political studies professor consulted- discharge to home once medically stable
[2016-11-04] MEDS: SUCRALFATE 1 GM/10 ML UDC PO SCH ×4 (08:42→19:52)
[2016-11-04] MEDS: PANTOprazole SOD 40 MG TAB PO SCH ×2 (08:43→19:52)
[2016-11-04] MEDS: ESCITALOPRAM OXALATE 10 MG TAB PO SCH (08:43)
[2016-11-04] MEDS: OXYBUTYNIN CHLORIDE 5 MG TABCR PO SCH (08:43)
[2016-11-04] MEDS: HEPARIN SOD 5000 UNIT/0.5 ML CARP SQ SCH ×2 (08:45→19:55)
--- NOTE | 2016-11-04 10:18 | Surgery Progress Note ---
Surgery Progress Note Date of Service Nov 04, 2016. Subjective Pt feeling well. No abdominal pain or discomfort. No nausea or vomiting. Tolerating diet. She is having multiple loose stools per day but no abdominal cramping or bloating preceeding. Wants to have surgery before she is discharged. Objective Vital Signs: Date Time Temp Pulse Resp B/P (MAP) Pulse Ox O2 Delivery O2 Flow Rate FiO2 11/04/16 08:00 94 Room Air 11/04/16 07:15 36.7 54 20 127/74 (91) 94 Room Air 11/04/16 00:30 Room Air 11/03/16 23:58 36.8 61 18 118/67 (84) 97 Room Air 11/03/16 16:00 Room Air General Appearance: WD/WN, no apparent distress Head: normocephalic Neck: supple Respiratory/Chest: lungs clear, normal breath sounds, no respiratory distress, no accessory muscle use Cardiovascular: regular rate, rhythm, no JVD Abdomen: normal bowel sounds, non tender, non distended, soft Laboratory Results: Results Past 24 Hours Test 11/04/16 07:24 Range/Units White Blood Count 3.08 4.8-10.8 K/uL Red Blood Count 3.28 4.2-5.4 M/uL Hemoglobin 10.5 12.0-16.0 g/dL Hematocrit 30.4 37-47 % Mean Corpuscular Volume 92.7 80-100 fL Mean Corpuscular Hemoglobin 32.0 25-34 pg Mean Corpuscular Hemoglobin Concent 34.5 32-36 g/dl RDW Standard Deviation 48.6 36.4-46.3 fL RDW Coefficient of Variation 14.2 11.5-14.5 % Platelet Count 140 130-400 K/uL Mean Platelet Volume 10.3 7.4-10.4 fL Sodium Level 144 136-145 mmol/L Potassium Level 3.8 3.5-5.1 mmol/L Chloride Level 114 98-107 mmol/L Carbon Dioxide Level 24 21-32 mmol/L Anion Gap 6.0 3-11 mmol/L Blood Urea Nitrogen 8 7-18 mg/dl Creatinine 0.93 0.60-1.20 mg/dl Est Creatinine Clear Calc Drug Dose 50.8 ml/min Estimated GFR () 69.7 Estimated GFR (Non- 60.1 BUN/Creatinine Ratio 8.6 10-20 Random Glucose 91 70-99 mg/dl Calcium Level 8.3 8.5-10.1 mg/dl Total Bilirubin 0.5 0.2-1 mg/dl Aspartate Amino Transf (AST/SGOT) 97 15-37 U/L Alanine Aminotransferase (ALT/SGPT) 66 12-78 U/L Alkaline Phosphatase 80 45-117 U/L Total Protein 5.6 6.4-8.2 gm/dl Albumin 2.6 3.4-5.0 gm/dl Globulin 3.0 2.5-4.0 gm/dl Albumin/Globulin Ratio 0.9 0.9-2 Microbiology Results 11/04/16 Blood Culture, Received Pending 11/04/16 Blood Culture, Received Pending Assessment & Plan Chronic cholecystitis - HIDA scan shows delayed filling of gallbladder. She is overall looking well. Discussed that I will defer timing of surgery to Dr. Underwood who will be back tomorrow. As mentioned above, pt would prefer to have surgery prior to discharge. Continue zosyn for bacteremia. Loose stools could potentially be related to gallbladder.
[2016-11-04 15:12] VITALS: BP 115/61; PULSE 58; TEMP 36.7; O2SAT 96
[2016-11-04 16:01] VITALS: O2SAT 96
[2016-11-04] MEDS: DOXYCYCLINE HYCLATE 100 MG CAP PO SCH ×2 (17:01→21:10)
[2016-11-04 17:19] LABS: LYME DISEASE AB IGG NEG (NEG)
[2016-11-04 17:38] LABS: LYME DISEASE AB IGM POS (NEG)
[2016-11-04] MEDS: SACCHAROMYCES BOUL (FLORASTOR) 250 MG CAP PO SCH (19:52)
[2016-11-04] MEDS: ACETAMINOPHEN 325 MG TAB PO PRN (21:11)
[2016-11-05 00:24] VITALS: BP 109/65; PULSE 57; TEMP 36.8; O2SAT 95
[2016-11-05] MEDS: ACETAMINOPHEN 325 MG TAB PO PRN (02:00)
[2016-11-05] MEDS: PIPERACILL/TAZOBAC IV 3.375 GM in DEXTROSE 5% 100ML 100 ML IV SCH ×3 (04:12→21:13)
[2016-11-05] MEDS: ONDANSETRON INJ 2 MG/ML 2 ML VIAL IV PRN (04:18)
[2016-11-05 07:09] LABS: BUN/CREATININE RATIO 11.8 (10-20); CALCIUM 8.9 mg/dl (8.5-10.1); CREATININE 0.87 mg/dl (0.60-1.20)
[2016-11-05 07:12] LABS: ALB/GLOB RATIO 0.9 (0.9-2)
[2016-11-05 07:53] VITALS: BP 128/73; PULSE 57; TEMP 36.6; O2SAT 97
[2016-11-05 08:00] VITALS: O2SAT 97
[2016-11-05] MEDS: FLUTICASONE PROPIONATE NA SPR 16 GM BTL NAE SCH (08:00)
[2016-11-05] MEDS: SUCRALFATE 1 GM/10 ML UDC PO SCH ×4 (08:12→21:14)
[2016-11-05] MEDS: PANTOprazole SOD 40 MG TAB PO SCH ×2 (08:12→21:13)
[2016-11-05] MEDS: SACCHAROMYCES BOUL (FLORASTOR) 250 MG CAP PO SCH ×2 (08:12→21:13)
[2016-11-05] MEDS: DOXYCYCLINE HYCLATE 100 MG CAP PO SCH ×2 (08:12→21:14)
[2016-11-05] MEDS: OXYBUTYNIN CHLORIDE 5 MG TABCR PO SCH (08:12)
[2016-11-05] MEDS: ESCITALOPRAM OXALATE 10 MG TAB PO SCH (08:12)
[2016-11-05] MEDS: HEPARIN SOD 5000 UNIT/0.5 ML CARP SQ SCH ×2 (08:21→20:00)
--- NOTE | 2016-11-05 11:15 | Hospitalist Progress Note ---
Hospitalist Progress Note Date of Service Nov 05, 2016. Subjective Pt evaluation today including: conversation w/ patient, physical exam, chart review, lab review, review of studies, review of inpatient medication list Voiding: no voiding problems, no incontinence Patient states she is feeling well. Eating and drinking OK. Patient denies any fever, chills, sweats, lightheadedness, dizziness, vision changes, CP, palpitations, edema, SOB, wheezing, cough, abdominal pain, nausea, vomiting, diarrhea, urinary symptoms, melena, numbness/tingling, weakness, muscle/joint pain, anxiety/depression, active bleeding, or new skin discoloration/changes. Medications Current Inpatient Medications Medications (Trade) Dose Ordered Sig/Morgan Route Start Time Stop Time Status Last Admin Dose Admin Escitalopram Oxalate (Lexapro Tab) 10 mg DAILY PO 11/02/16 08:00 12/02/16 08:59 11/05/16 08:12 10 MG Fluticasone Propionate (Flonase Nasal [place]) 2 sprays DAILY SARAHI 11/02/16 08:00 12/02/16 08:59 Oxybutynin Chloride (Ditropan-Xl Tab) 10 mg DAILY PO 11/02/16 08:00 12/02/16 08:59 11/05/16 08:12 10 MG Piperacillin Sod/ Tazobactam Sod 3.375 gm/Dextrose 115 ml @ 28.75 mls/ hr Q8H IV 11/01/16 20:00 11/11/16 19:59 11/05/16 04:12 28.75 MLS/HR Acetaminophen 650 mg/Empty Bag 65 ml @ 260 mls/hr Q6H PRN IV 11/01/16 19:00 12/01/16 18:59 Acetaminophen (Tylenol Tab) 650 mg Q4H PRN PO 11/01/16 19:00 12/01/16 18:59 11/05/16 02:00 650 MG Al Hydrox/Mg Hydrox/Simethicone (Maalox Max Susp) 15 ml Q4H PRN PO 11/01/16 19:00 12/01/16 18:59 11/02/16 18:22 15 ML Magnesium Hydroxide (Milk Of Magnesia Susp) 30 ml Q6H PRN PO 11/01/16 19:00 12/01/16 18:59 Ondansetron HCl (Zofran Inj) 4 mg Q6H PRN IV 11/01/16 19:00 12/01/16 18:59 11/05/16 04:18 4 MG Heparin Sodium (Porcine) (Heparin Sq 5000 Unit/0.5ml) 5,000 unit Q12H SQ 11/01/16 20:00 12/01/16 19:59 11/05/16 08:21 5,000 UNIT Pantoprazole Sodium (Protonix Tab) 40 mg BID PO 11/01/16 20:00 12/01/16 20:59 11/05/16 08:12 40 MG Piperacillin Sod/ Tazobactam Sod (Consult) 1 ea UD PRN N/A 11/01/16 19:15 12/01/16 19:14 Sucralfate (Carafate Susp) 1 gm QID PO 11/03/16 12:00 12/03/16 11:59 11/05/16 08:12 1 GM Doxycycline Hyclate (Vibramycin Cap) 100 mg BID PO 11/04/16 16:00 11/14/16 15:59 11/05/16 08:12 100 MG Saccharomyces Boulardii (Florastor Cap) 250 mg BID PO 11/04/16 20:00 12/04/16 19:59 11/05/16 08:12 250 MG Objective Vital Signs Date Time Temp Pulse Resp B/P (MAP) Pulse Ox O2 Delivery O2 Flow Rate FiO2 11/05/16 08:00 97 Room Air 11/05/16 07:53 36.6 57 18 128/73 (91) 97 Room Air 11/05/16 00:24 36.8 57 18 109/65 (80) 95 Room Air 11/04/16 23:30 Room Air 11/04/16 16:01 96 Room Air 11/04/16 15:12 36.7 58 18 115/61 (79) 96 Room Air Physical Exam General Appearance: no apparent distress Eyes: normal inspection, PERRL ENT: hearing grossly normal Neck: supple Respiratory/Chest: lungs clear, no respiratory distress, no accessory muscle use Cardiovascular: regular rate, rhythm Abdomen: normal bowel sounds, non tender, soft Extremities: no pedal edema, no calf tenderness Neurologic/Psychiatric: alert, normal mood/affect, oriented x 3 Skin: normal color, warm/dry, no rash Laboratory Results Last 24 Hours Test 11/04/16 15:47 11/05/16 06:23 Lyme Disease IgG Antibody NEG Lyme Disease IgM Antibody POS Sodium Level 143 mmol/L Potassium Level 4.0 mmol/L Chloride Level 112 mmol/L Carbon Dioxide Level 25 mmol/L Anion Gap 6.0 mmol/L Blood Urea Nitrogen 10 mg/dl Creatinine 0.87 mg/dl Est Creatinine Clear Calc Drug Dose 54.3 ml/min Estimated GFR () 75.5 Estimated GFR (Non- 65.2 BUN/Creatinine Ratio 11.8 Random Glucose 104 mg/dl Calcium Level 8.9 mg/dl Total Bilirubin 0.6 mg/dl Aspartate Amino Transf (AST/SGOT) 111 U/L Alanine Aminotransferase (ALT/SGPT) 89 U/L Alkaline Phosphatase 126 U/L Total Protein 6.4 gm/dl Albumin 3.0 gm/dl Globulin 3.4 gm/dl Albumin/Globulin Ratio 0.9 Assessment and Plan 75-year-old female, w/ PMHx of depression, dyslipidemia, urinary urgency, and GERD, who presented w/ fever and ongoing abdominal pain Abdominal pain, etiology uncertain- ?GERD vs. cystitis vs. gallbladder disease: - Admit to med/surg - IV Zosyn (started 11/01) - Treated w/ IV NSS @ 100 ml/hr x8 bags- d/c'd on 11/04 - BCx positive x1- growing gram positive bacilli, BCx x1- NGTD -- Repeat BCx pending - UCx- negative - ESR- WNL, CRP- mildly elevated at 9.9 - Lipase- WNL - Gallbladder US on 11/01: No gallstones or biliary ductal dilatation. Minimal sludge within the gallbladder with mild gallbladder distention. No convincing evidence for acute cholecystitis. - Abdominal CT on 11/01: Mild gallbladder distention without pericholecystic infiltration. The findings are not highly suggestive of acute cholecystitis although a hepatobiliary scan could be obtained if clinically indicated. No urinary calculi or hydronephrosis. No bowel obstruction. Probable fatty infiltration of the liver. - HIDA scan on 11/03: Findings suggestive chronic a calculus cholecystitis. Delayed and incomplete opacification of the gallbladder. Good flow of isotope to the small bowel. - General surgery consulted, appreciate recommendations -- Possible cholecystectomy on 11/06 - GI consulted, appreciate recommendations -- Continue Protonix 40 mg BID and Carafate 1 g QID -- f/u outpatient and possible EGD w/ Case Elevated LFTs: Follow CMP Recent tick bite, lyme IgM +: - Western blot pending - Doxycycline 100 mg BID x14 days (started on 11/04) Loose stools, ?secondary to gallbladder disease: - C. diff negative x2 - Florastor 250 mg BID Mild hypokalemia- RESOLVED: - Replace w/ PO KCL supplement - Follow PRP and replace PRN GERD: Continue Protonix 40 mg QAM and Carafate QID Depression: Lexapro 10 mg daily Dyslipidemia: Fenofibrate 160 mg daily Urinary urgency: Oxybutynin 10 mg daily GI Prophylaxis: Carafate, Protonix, Maalox PRN, IV Zofran PRN, Colace and/or Milk of Mag PRN DVT prophylaxis: Heparin 5000 units SQ q12 hrs, CRISTIANA and SCDs Code Status: LEVEL I, FULL Dispo: From home, lives w/ - social sciences chair consulted- discharge to home once medically stable
--- NOTE | 2016-11-05 14:54 | Anesthesiology Consultation ---
Anesthesia Pre-Op Eval Date of Surgery: Nov 05, 2016. Patient Information: Patient's Age: 75 Sex: female Family Doctor: Khalif Corley D.O. Vital Signs: Vital Signs Past 12 Hours Date Time Temp Pulse Resp B/P (MAP) Pulse Ox O2 Delivery O2 Flow Rate FiO2 11/05/16 08:00 97 Room Air 11/05/16 07:53 36.6 57 18 128/73 (91) 97 Room Air Allergies Coded Allergies: Iodine (Unverified Allergy, Intermediate, HIVES, 11/01/16) Current Medications Home Meds and Scripts Medications Dose Route/Sig Max Daily Dose Days Date Category Flonase Allergy Relief (Fluticasone Propionate (Nasal)) 50 Mcg/Act Spr 2 Sprays SARAHI DAILY 11/01/16 Reported Premarin (Estrogens, Conjugated) 14 Appln/30 Gm Cr 1 Gm PV 3XWK 11/01/16 Reported Lexapro (Escitalopram Oxalate) 10 Mg Tab 10 Mg PO DAILY 11/01/16 Reported Tricor (Fenofibrate) 160 Mg Tab 160 Mg PO DAILY 11/01/16 Reported Oxybutynin Chloride ER (Oxybutynin Chloride) 10 Mg Tabcr 10 Mg PO DAILY 11/01/16 Reported Protonix (Pantoprazole Sodium) 40 Mg Tab 40 Mg PO DAILY 11/01/16 Reported Current Inpatient Medications Medications (Trade) Dose Ordered Sig/Morgan Route Start Time Stop Time Status Last Admin Dose Admin Escitalopram Oxalate (Lexapro Tab) 10 mg DAILY PO 11/02/16 08:00 12/02/16 08:59 11/05/16 08:12 10 MG Fluticasone Propionate (Flonase Nasal [place]) 2 sprays DAILY SARAHI 11/02/16 08:00 12/02/16 08:59 Oxybutynin Chloride (Ditropan-Xl Tab) 10 mg DAILY PO 11/02/16 08:00 12/02/16 08:59 11/05/16 08:12 10 MG Piperacillin Sod/ Tazobactam Sod 3.375 gm/Dextrose 115 ml @ 28.75 mls/ hr Q8H IV 11/01/16 20:00 11/11/16 19:59 11/05/16 12:19 28.75 MLS/HR Acetaminophen 650 mg/Empty Bag 65 ml @ 260 mls/hr Q6H PRN IV 11/01/16 19:00 12/01/16 18:59 Acetaminophen (Tylenol Tab) 650 mg Q4H PRN PO 11/01/16 19:00 12/01/16 18:59 11/05/16 02:00 650 MG Al Hydrox/Mg Hydrox/Simethicone (Maalox Max Susp) 15 ml Q4H PRN PO 11/01/16 19:00 12/01/16 18:59 11/02/16 18:22 15 ML Magnesium Hydroxide (Milk Of Magnesia Susp) 30 ml Q6H PRN PO 11/01/16 19:00 12/01/16 18:59 Ondansetron HCl (Zofran Inj) 4 mg Q6H PRN IV 11/01/16 19:00 12/01/16 18:59 11/05/16 04:18 4 MG Heparin Sodium (Porcine) (Heparin Sq 5000 Unit/0.5ml) 5,000 unit Q12H SQ 11/01/16 20:00 12/01/16 19:59 11/05/16 08:21 5,000 UNIT Pantoprazole Sodium (Protonix Tab) 40 mg BID PO 11/01/16 20:00 12/01/16 20:59 11/05/16 08:12 40 MG Piperacillin Sod/ Tazobactam Sod (Consult) 1 ea UD PRN N/A 11/01/16 19:15 12/01/16 19:14 Sucralfate (Carafate Susp) 1 gm QID PO 11/03/16 12:00 12/03/16 11:59 11/05/16 12:19 1 GM Doxycycline Hyclate (Vibramycin Cap) 100 mg BID PO 11/04/16 16:00 11/14/16 15:59 11/05/16 08:12 100 MG Saccharomyces Boulardii (Florastor Cap) 250 mg BID PO 11/04/16 20:00 12/04/16 19:59 11/05/16 08:12 250 MG Social History Smoking Status: Never Smoker Smokeless Tobacco Use: No Drug Use: none Physical Exam Head: normocephalic Neck: supple Laboratory Studies Last Resulted CBC 11/04/16 07:24 Last Resulted BMP 11/05/16 06:23 Laboratory Tests Test 11/01/16 12:05 11/05/16 06:23 Prothromb Time International Ratio 1.1 (0.9-1.1) Calcium Level 8.9 mg/dl (8.5-10.1) Pre-Anesthesia Meds Ordered Additional Comments: 75yr old pleasant female in NAD. Allergic to iodine, history of reflux, hyperlipidemia, anemia and depression. Admitted with abdominal pain on Thursday. Denies any N/V while in hospital. Scheduled for laparoscopic cholecystectomy with doctor Yasmine. Pt consented for GA. Pt understands risks and agrees to plan.
[2016-11-05 14:59] VITALS: BP 119/71; PULSE 56; TEMP 36.5; O2SAT 98
[2016-11-05 16:01] VITALS: O2SAT 96
--- NOTE | 2016-11-05 16:09 | Surgery Progress Note ---
Surgery Progress Note Date of Service Nov 05, 2016. Subjective Post OP Day: HD # 4 + feeling well, + bowel movement, + flatus, + pain controlled, + diet, No chest pain, No SOB, No nausea, No vomiting Objective Vital Signs: Date Time Temp Pulse Resp B/P (MAP) Pulse Ox O2 Delivery O2 Flow Rate FiO2 11/05/16 14:59 36.5 56 20 119/71 (87) 98 Room Air 11/05/16 08:00 97 Room Air 11/05/16 07:53 36.6 57 18 128/73 (91) 97 Room Air 11/05/16 00:24 36.8 57 18 109/65 (80) 95 Room Air 11/04/16 23:30 Room Air General Appearance: WD/WN, no apparent distress Head: normocephalic, atraumatic Neck: trachea midline Respiratory/Chest: lungs clear, normal breath sounds, no respiratory distress, no accessory muscle use Cardiovascular: regular rate, rhythm, no murmur Abdomen: non distended, soft, no organomegaly, + tenderness (very mild tenderness RUQ) Laboratory Results: Results Past 24 Hours Test 11/05/16 06:23 Range/Units Sodium Level 143 136-145 mmol/L Potassium Level 4.0 3.5-5.1 mmol/L Chloride Level 112 98-107 mmol/L Carbon Dioxide Level 25 21-32 mmol/L Anion Gap 6.0 3-11 mmol/L Blood Urea Nitrogen 10 7-18 mg/dl Creatinine 0.87 0.60-1.20 mg/dl Est Creatinine Clear Calc Drug Dose 54.3 ml/min Estimated GFR () 75.5 Estimated GFR (Non- 65.2 BUN/Creatinine Ratio 11.8 10-20 Random Glucose 104 70-99 mg/dl Calcium Level 8.9 8.5-10.1 mg/dl Total Bilirubin 0.6 0.2-1 mg/dl Aspartate Amino Transf (AST/SGOT) 111 15-37 U/L Alanine Aminotransferase (ALT/SGPT) 89 12-78 U/L Alkaline Phosphatase 126 45-117 U/L Total Protein 6.4 6.4-8.2 gm/dl Albumin 3.0 3.4-5.0 gm/dl Globulin 3.4 2.5-4.0 gm/dl Albumin/Globulin Ratio 0.9 0.9-2 Microbiology Results 7/4/17 C.difficile Toxin B Gene (PCR) - Final, Complete No C. difficile toxin B gene detected Assessment & Plan Acalculous cholecystitis - vitals stable - HIDA scan showing delayed gallbladder filling suggesting acalculous cholecystitis - Total bili normal - slight bump in LFTS today Bacteremia - 1/2 Blood culture positive- gram negative bacilli - urine culture negative - repeat blood cultures x 2 pending 11/04/2016 Plan: Plan for laparoscopic cholecystectomy tomorrow with Dr. Underwood. Will again discuss the procedure and risks with the patient tomorrow and obtain informed consent by Dr. Underwood. Continue IV abx Continue diet for today, NPO after midnight continue medical management repeat am labs to include direct bilirubin Hold Heparin after this evening dose for OR tomorrow Dr. King has seen and examined patient, agrees with above. Pt seen and examined. Agree with note above. For lap roland tomorrow.
[2016-11-06] VITALS (7 sets, daily range): BP systolic 103–136; BP diastolic 66–79; PULSE 50–81; TEMP 36.1–36.9; O2SAT 91–99
[2016-11-06] MEDS: PIPERACILL/TAZOBAC IV 3.375 GM in DEXTROSE 5% 100ML 100 ML IV SCH ×3 (04:07→21:29)
[2016-11-06] MEDS: ONDANSETRON INJ 2 MG/ML 2 ML VIAL IV PRN (05:15)
[2016-11-06] MEDS: SACCHAROMYCES BOUL (FLORASTOR) 250 MG CAP PO SCH ×2 (08:00→21:31)
[2016-11-06] MEDS: SUCRALFATE 1 GM/10 ML UDC PO SCH ×4 (08:00→21:29)
[2016-11-06] MEDS: PANTOprazole SOD 40 MG TAB PO SCH ×2 (08:00→21:29)
[2016-11-06] MEDS: OXYBUTYNIN CHLORIDE 5 MG TABCR PO SCH (08:00)
[2016-11-06] MEDS: FLUTICASONE PROPIONATE NA SPR 16 GM BTL NAE SCH (08:00)
[2016-11-06] MEDS: DOXYCYCLINE HYCLATE 100 MG CAP PO SCH ×2 (08:00→21:30)
[2016-11-06] MEDS: ESCITALOPRAM OXALATE 10 MG TAB PO SCH (08:00)
[2016-11-06 08:20] LABS: BUN/CREATININE RATIO 13.5 (10-20); CALCIUM 9.2 mg/dl (8.5-10.1); CREATININE 1.1 mg/dl (0.60-1.20); POTASSIUM 3.8 mmol/L (3.5-5.1)
[2016-11-06 08:22] LABS: ALB/GLOB RATIO 0.9 (0.9-2)
[2016-11-06 08:24] LABS: HEMATOCRIT 35.2 % (37-47); MEAN CELL VOLUME 91.7 fL (80-100); MEAN CORPUSCULAR HEMOGLOBIN 31.3 pg (25-34); MEAN CORPUSCULAR HGB CONC 34.1 g/dl (32-36); MEAN PLATELET VOLUME 10.3 fL (7.4-10.4); PLATELET COUNT 237 K/uL (130-400); RED BLOOD COUNT 3.84 M/uL (4.2-5.4); WHITE BLOOD COUNT 5.09 K/uL (4.8-10.8)
[2016-11-06] MEDS ORDERED: EpHEDrine SULFATE INJ 50 MG/ML AMP IV PRN (09:30)
[2016-11-06] MEDS ORDERED: FENTANYL CITRATE INJ 50 MCG/1 ML 2 ML VIAL IV PRN (09:30)
[2016-11-06] MEDS ORDERED: ATROPINE SULFATE 0.1 MG/ML 5ML SYR IV PRN (09:30)
[2016-11-06] MEDS ORDERED: HYDROmorphone INJ 1 MG/ML SYR IV PRN (09:30)
[2016-11-06] MEDS ORDERED: ONDANSETRON INJ 2 MG/ML 2 ML VIAL IV PRN (09:30)
--- NOTE | 2016-11-06 09:57 | Surgery Progress Note ---
Surgery Progress Note Date of Service Nov 06, 2016. Subjective Post OP Day: HD # 5 + feeling well, + complaints (headache early this am, was treated now feeling better), + bowel movement, + flatus, + diet (diet last evening, now NPO), No nausea, No vomiting Objective Vital Signs: Date Time Temp Pulse Resp B/P (MAP) Pulse Ox O2 Delivery O2 Flow Rate FiO2 11/06/16 08:00 97 Room Air 11/06/16 07:56 36.8 50 16 111/66 (81) 97 Room Air 11/06/16 00:02 36.7 60 18 103/66 (78) 95 Room Air 11/05/16 23:50 Room Air 11/05/16 16:01 96 Room Air 11/05/16 14:59 36.5 56 20 119/71 (87) 98 Room Air General Appearance: WD/WN, no apparent distress Head: normocephalic, atraumatic Neck: trachea midline Respiratory/Chest: lungs clear, normal breath sounds, no respiratory distress, no accessory muscle use Cardiovascular: regular rate, rhythm, no murmur Abdomen: non distended, soft, + tenderness (mild in RUQ, no guarding, rigidity or rebound. No peritonitis. Negative Coats's sign) Laboratory Results: Results Past 24 Hours Test 11/06/16 06:51 Range/Units White Blood Count 5.09 4.8-10.8 K/uL Red Blood Count 3.84 4.2-5.4 M/uL Hemoglobin 12.0 12.0-16.0 g/dL Hematocrit 35.2 37-47 % Mean Corpuscular Volume 91.7 80-100 fL Mean Corpuscular Hemoglobin 31.3 25-34 pg Mean Corpuscular Hemoglobin Concent 34.1 32-36 g/dl RDW Standard Deviation 48.8 36.4-46.3 fL RDW Coefficient of Variation 14.3 11.5-14.5 % Platelet Count 237 130-400 K/uL Mean Platelet Volume 10.3 7.4-10.4 fL Sodium Level 142 136-145 mmol/L Potassium Level 3.8 3.5-5.1 mmol/L Chloride Level 108 98-107 mmol/L Carbon Dioxide Level 25 21-32 mmol/L Anion Gap 9.0 3-11 mmol/L Blood Urea Nitrogen 15 7-18 mg/dl Creatinine 1.10 0.60-1.20 mg/dl Est Creatinine Clear Calc Drug Dose 43.0 ml/min Estimated GFR () 56.9 Estimated GFR (Non- 49.1 BUN/Creatinine Ratio 13.5 10-20 Random Glucose 107 70-99 mg/dl Calcium Level 9.2 8.5-10.1 mg/dl Total Bilirubin 0.6 0.2-1 mg/dl Direct Bilirubin 0.2 0-0.2 mg/dl Aspartate Amino Transf (AST/SGOT) 84 15-37 U/L Alanine Aminotransferase (ALT/SGPT) 86 12-78 U/L Alkaline Phosphatase 112 45-117 U/L Total Protein 6.7 6.4-8.2 gm/dl Albumin 3.1 3.4-5.0 gm/dl Globulin 3.6 2.5-4.0 gm/dl Albumin/Globulin Ratio 0.9 0.9-2 Assessment & Plan Acalculous cholecystitis - vitals stable - HIDA scan showing delayed gallbladder filling suggesting acalculous cholecystitis - Total bili normal - LFTS improved today Bacteremia - 1/2 Blood culture positive- gram negative bacilli - urine culture negative - repeat blood cultures x 2 negative( 11/04/2016) Plan: Plan for laparoscopic cholecystectomy today with Dr. Underwood. Will have Dr. Underwood obtain consent. Resume NPO status Continue IV abx continue medical management Hold Heparin
[2016-11-06] MEDS ORDERED: MIDAZOLAM HCL 1 MG/ML 2ML VIAL ONE (12:09)
[2016-11-06] MEDS ORDERED: FENTANYL CITRATE INJ 50 MCG/1 ML 2 ML VIAL ONE ×2 (12:10→15:27)
[2016-11-06] MEDS ORDERED: NEOSTIGMINE METHYLSULFATE 5 MG/5 ML SYR ONE (12:34)
[2016-11-06] MEDS ORDERED: DEXAMETHASONE SOD INJ 4 MG/ML VIAL ONE (12:34)
[2016-11-06] MEDS ORDERED: PROPOFOL IV EMULSION 10 MG/ML 20 ML VIAL IV ONE (12:34)
[2016-11-06] MEDS ORDERED: LARYING-O-JET KIT (LTA) ONE ×2 (12:34)
[2016-11-06] MEDS ORDERED: ONDANSETRON INJ 2 MG/ML 2 ML VIAL ONE (12:34)
[2016-11-06] MEDS ORDERED: ROCURONIUM BROMIDE 10 MG/ML 5 ML VIAL ONE (12:34)
[2016-11-06] MEDS ORDERED: GLYCOPYRROLATE INJ 0.2 MG/ML VIAL ONE (12:34)
[2016-11-06] MEDS ORDERED: LIDOCAINE HCL 2% 2 ML VIAL (20MG/ML) ONE (12:34)
--- NOTE | 2016-11-06 12:52 | Hospitalist Progress Note ---
Hospitalist Progress Note Date of Service Nov 06, 2016. (Palmira Sharma ., KARLEE) Subjective Pt evaluation today including: conversation w/ patient, conversation w/ family ( and daughter- at bedside ), physical exam, chart review, lab review, review of inpatient medication list Voiding: no voiding problems, no incontinence Patient states she is feeling well. Denies any abdominal pain. NPO for lap roland this afternoon. Patient denies any fever, chills, sweats, lightheadedness, dizziness, vision changes, CP, palpitations, edema, SOB, wheezing, cough, abdominal pain, nausea, vomiting, diarrhea, urinary symptoms, melena, numbness/tingling, weakness, muscle/joint pain, anxiety/depression, active bleeding, or new skin discoloration/changes. (Palmira Sharma ., KEELEYC) Medications Current Inpatient Medications Medications (Trade) Dose Ordered Sig/Morgan Route Start Time Stop Time Status Last Admin Dose Admin Escitalopram Oxalate (Lexapro Tab) 10 mg DAILY PO 11/02/16 08:00 12/02/16 08:59 11/05/16 08:12 10 MG Fluticasone Propionate (Flonase Nasal [place]) 2 sprays DAILY SARAHI 11/02/16 08:00 12/02/16 08:59 Oxybutynin Chloride (Ditropan-Xl Tab) 10 mg DAILY PO 11/02/16 08:00 12/02/16 08:59 11/05/16 08:12 10 MG Piperacillin Sod/ Tazobactam Sod 3.375 gm/Dextrose 115 ml @ 28.75 mls/ hr Q8H IV 11/01/16 20:00 11/11/16 19:59 11/06/16 11:18 28.75 MLS/HR Acetaminophen 650 mg/Empty Bag 65 ml @ 260 mls/hr Q6H PRN IV 11/01/16 19:00 12/01/16 18:59 11/06/16 05:22 260 MLS/HR Acetaminophen (Tylenol Tab) 650 mg Q4H PRN PO 11/01/16 19:00 12/01/16 18:59 11/05/16 02:00 650 MG Al Hydrox/Mg Hydrox/Simethicone (Maalox Max Susp) 15 ml Q4H PRN PO 11/01/16 19:00 12/01/16 18:59 11/02/16 18:22 15 ML Magnesium Hydroxide (Milk Of Magnesia Susp) 30 ml Q6H PRN PO 11/01/16 19:00 12/01/16 18:59 Ondansetron HCl (Zofran Inj) 4 mg Q6H PRN IV 11/01/16 19:00 12/01/16 18:59 11/06/16 05:15 4 MG Heparin Sodium (Porcine) (Heparin Sq 5000 Unit/0.5ml) 5,000 unit Q12H SQ 11/01/16 20:00 12/01/16 19:59 Future Hold 11/05/16 08:21 5,000 UNIT Pantoprazole Sodium (Protonix Tab) 40 mg BID PO 11/01/16 20:00 12/01/16 20:59 11/05/16 21:13 40 MG Piperacillin Sod/ Tazobactam Sod (Consult) 1 ea UD PRN N/A 11/01/16 19:15 12/01/16 19:14 Sucralfate (Carafate Susp) 1 gm QID PO 11/03/16 12:00 12/03/16 11:59 11/05/16 21:14 1 GM Doxycycline Hyclate (Vibramycin Cap) 100 mg BID PO 11/04/16 16:00 11/14/16 15:59 11/05/16 21:14 100 MG Saccharomyces Boulardii (Florastor Cap) 250 mg BID PO 11/04/16 20:00 12/04/16 19:59 11/05/16 21:13 250 MG Fentanyl Citrate (Fentanyl Inj) 25 mcg Q5M PRN IV 11/06/16 09:30 11/06/16 14:30 Hydromorphone HCl (Dilaudid Inj) 0.25 mg Q5M PRN IV 11/06/16 09:30 11/06/16 14:30 Ondansetron HCl (Zofran Inj) 4 mg ONE PRN IV 11/06/16 09:30 11/06/16 14:30 Ephedrine Sulfate (EpHEDrine SULFATE INJ) 5 mg Q5M PRN IV 11/06/16 09:30 11/06/16 14:30 Atropine Sulfate (Atropine Sulfate 0.1MG/Ml Inj) 0.5 mg Q1M PRN IV 11/06/16 09:30 11/06/16 14:30 (Palmira Sharma PA-C) Objective Vital Signs Date Time Temp Pulse Resp B/P (MAP) Pulse Ox O2 Delivery O2 Flow Rate FiO2 11/06/16 08:00 97 Room Air 11/06/16 07:56 36.8 50 16 111/66 (81) 97 Room Air 11/06/16 00:02 36.7 60 18 103/66 (78) 95 Room Air 11/05/16 23:50 Room Air 11/05/16 16:01 96 Room Air 11/05/16 14:59 36.5 56 20 119/71 (87) 98 Room Air (Palmira Sharma PA-C) Physical Exam General Appearance: no apparent distress Eyes: normal inspection, PERRL ENT: hearing grossly normal Neck: supple Respiratory/Chest: lungs clear, no respiratory distress, no accessory muscle use Cardiovascular: regular rate, rhythm Abdomen: normal bowel sounds, non tender, soft Extremities: no pedal edema, no calf tenderness Neurologic/Psychiatric: alert, normal mood/affect, oriented x 3 Skin: normal color, warm/dry, no rash (Palmira Sharma, KEELEYC) Laboratory Results Last 24 Hours Test 11/06/16 06:51 White Blood Count 5.09 K/uL Red Blood Count 3.84 M/uL Hemoglobin 12.0 g/dL Hematocrit 35.2 % Mean Corpuscular Volume 91.7 fL Mean Corpuscular Hemoglobin 31.3 pg Mean Corpuscular Hemoglobin Concent 34.1 g/dl RDW Standard Deviation 48.8 fL RDW Coefficient of Variation 14.3 % Platelet Count 237 K/uL Mean Platelet Volume 10.3 fL Sodium Level 142 mmol/L Potassium Level 3.8 mmol/L Chloride Level 108 mmol/L Carbon Dioxide Level 25 mmol/L Anion Gap 9.0 mmol/L Blood Urea Nitrogen 15 mg/dl Creatinine 1.10 mg/dl Est Creatinine Clear Calc Drug Dose 43.0 ml/min Estimated GFR () 56.9 Estimated GFR (Non- 49.1 BUN/Creatinine Ratio 13.5 Random Glucose 107 mg/dl Calcium Level 9.2 mg/dl Total Bilirubin 0.6 mg/dl Direct Bilirubin 0.2 mg/dl Aspartate Amino Transf (AST/SGOT) 84 U/L Alanine Aminotransferase (ALT/SGPT) 86 U/L Alkaline Phosphatase 112 U/L Total Protein 6.7 gm/dl Albumin 3.1 gm/dl Globulin 3.6 gm/dl Albumin/Globulin Ratio 0.9 (Palmira Sharma, PAZaynabC) Assessment and Plan 75-year-old female, w/ PMHx of depression, dyslipidemia, urinary urgency, and GERD, who presented w/ fever and ongoing abdominal pain Abdominal pain, etiology uncertain- ?GERD vs. cystitis vs. gallbladder disease: - Admit to med/surg - IV Zosyn (started 11/01) - Treated w/ IV NSS @ 100 ml/hr x8 bags- d/c'd on 11/04 - BCx positive x1- growing gram positive bacilli, BCx x1- NGTD -- Repeat BCx pending - UCx- negative - ESR- WNL, CRP- mildly elevated at 9.9 - Lipase- WNL - Gallbladder US on 11/01: No gallstones or biliary ductal dilatation. Minimal sludge within the gallbladder with mild gallbladder distention. No convincing evidence for acute cholecystitis. - Abdominal CT on 11/01: Mild gallbladder distention without pericholecystic infiltration. The findings are not highly suggestive of acute cholecystitis although a hepatobiliary scan could be obtained if clinically indicated. No urinary calculi or hydronephrosis. No bowel obstruction. Probable fatty infiltration of the liver. - HIDA scan on 11/03: Findings suggestive chronic a calculus cholecystitis. Delayed and incomplete opacification of the gallbladder. Good flow of isotope to the small bowel. - General surgery consulted, appreciate recommendations -- Cholecystectomy on 11/06 w/ Dr. Underwood - GI consulted, appreciate recommendations -- Continue Protonix 40 mg BID and Carafate 1 g QID -- f/u outpatient and possible EGD w/ Case Elevated LFTs: Trending down, continue to follow Recent tick bite, lyme IgM +: - Western blot pending - Doxycycline 100 mg BID x14 days (started on 11/04) Loose stools, ?secondary to gallbladder disease: - C. diff negative x2 - Florastor 250 mg BID Mild hypokalemia- RESOLVED: - Replace w/ PO KCL supplement - Follow PRP and replace PRN GERD: Continue Protonix 40 mg QAM and Carafate QID Depression: Lexapro 10 mg daily Dyslipidemia: Fenofibrate 160 mg daily Urinary urgency: Oxybutynin 10 mg daily GI Prophylaxis: Carafate, Protonix, Maalox PRN, IV Zofran PRN, Colace and/or Milk of Mag PRN DVT prophylaxis: Heparin 5000 units SQ q12 hrs- held due to roland, resume MOI once OK from surgical standpoint Code Status: LEVEL I, FULL Dispo: From home, lives w/ - social science analyst consulted- discharge to home once medically stable (Palmira Sharma, PA-C) Reviewed: Pt Seen/Exam by Me (Estela Schwartz DO) History Pt is awaiting OR today. Still with some abd pain, but better. Has a h/a, which she says happens when she doesn't have caffeine. No chest pain or SOB. Agree with HPI/ROS as noted. (Estela Schwartz, ) General Appearance: WD/WN, no apparent distress Respiratory: normal breath sounds, no respiratory distress Cardiovascular: normal peripheral pulses, regular rate, rhythm Gastrointestinal: non tender (nonTTP to superficial palpation), soft Extremities: non-tender, no pedal edema Neurologic/Psychiatric: alert, normal mood/affect Skin Characteristics: normal color, warm/dry (Estela Schwartz DO) Assessment/Plan Agree with plan as outlined above Pt for lap roland later today LFTs improving Imaging noted H/a likely related to caffeine withdrawal, monitor (Estela Schwartz DO)
[2016-11-06] MEDS ORDERED: HEPARIN SOD (PORCINE) 1000 UNIT/ML 10 ML VIAL ONE (13:27)
[2016-11-06] MEDS ORDERED: BUPIVACAINE 0.5 % 5 MG/1 ML MPF 30ML VIAL ONE (13:27)
[2016-11-06] MEDS ORDERED: CEFAZOLIN SOD 1 GM VIAL ONE (13:27)
[2016-11-06] MEDS ORDERED: METOCLOPRAMIDE HCL INJ 5 MG/ML 2 ML VIAL ONE (14:11)
[2016-11-06] MEDS ORDERED: KETOROLAC TROMETHAMINE 30 MG/ML VIAL ONE (14:36)
--- NOTE | 2016-11-06 14:51 | [facility] Operative Report ---
Operative Report Operative Date Nov 06, 2016. Pre-Operative Diagnosis Acalculous cholecystitis Post-Operative Diagnosis Same as Pre-op Procedure(s) Performed Laparoscopic Cholecystectomy Surgeon Dr. Gama Underwood Medical Technologist Microbiology Surgeon(s) Jess Gonzalez PA-C Estimated Blood Loss 5 ML Findings The gallbladder was not dilated. There were adhesions to the anterior wall of the gallbladder. Those were adhesions of the omentum. The cystic duct was not dilated. The liver was of normal size and contour and the visible bowel appeared normal. Specimens A. Gall Bladder and Contents Drains None Anesthesia General Complication(s) None Disposition Recovery Room / PACU Description of Procedure The patient was given a general anesthetic and the area was prepped and draped in usual sterile fashion. Transverse incision was made below the umbilicus carried down through the subcutaneous tissue to the fascia which was grasped with 2 Shivani clamps and incised between. The peritoneum was identified grasped and sized the introducer was placed bluntly. The abdomen was then insufflated to a pressure of 15 mmHg with carbon dioxide. The upper midline midclavicular and anterior axillary introducers were placed under direct vision through small skin incisions. Traction was placed on the gallbladder and beginning with some of the adhesions that were to the body and infundibular area they were taken down using cautery and blunt dissection were appropriate. The duodenum was not adhesed. I was unable to identify the infundibulum and opened the peritoneum on the lateral side. This was peeled down towards the common bile duct. Further dissection was carried over the anterior surface of the infundibulum and the triangle of kilo. The cystic duct lymph node was identified as well. The infundibulum was dissected away from the liver on the lateral side than the medial side allowing better mobility. There was a thickened lymphatic anterior to the cystic duct which was clamped and divided. The cystic duct lymph node was dissected away from the tissues posteriorly. It was clipped on the lymph node and near the gallbladder and those lymphatics were divided. That allowed even better mobility and allowed me to identify the cystic duct. The cystic duct was then cleansed on the medial side lateral side posteriorly isolating in 360 and allowing me to identify with confidence the cystic duct gallbladder junction. 3 clips were placed on the proximal cystic duct one near its junction with the gallbladder was divided. I then was able to elevate that identify the cystic artery lying in the triangle of kilo which was isolated, clipped twice proximally once to the gallbladder and divided. The gallbladder was then peeled off the liver bed using electrocautery. He was placed in an Endobag and brought out through the upper midline incision. An introducer was replaced and the liver edge was elevated. The subdiaphragmatic and subhepatic spaces were irrigated and irrigation was removed that was repeated until the return was clear. The gallbladder bed of the liver was inspected there was no bleeding. The previously placed clips were inspected and were intact. The gas was allowed to escape and the introducers were removed. The fascia of the umbilical and upper midline introducer sites was closed with interrupted 0 Vicryl the skin of all incisions was closed with 4-0 Monocryl in either running or interrupted fashion. The skin was anesthetized with 0.5% Marcaine. The skin was cleansed dry benzoin placed and Steri-Strips applied. Estimated blood loss was 10 mL. Sponge, needle and instrument counts were correct prior to closure. The patient tolerated surgical procedure without complication was transferred to recovery. I attest to the content of the Intraoperative Record and any orders documented therein. Any exceptions are noted below.
[2016-11-06] MEDS ORDERED: MoRPHine SULFATE 4 MG/ML 1 ML CARP\\VIAL IV PRN (15:15)
[2016-11-06] MEDS ORDERED: OXYCODONE/ACETAMINOPHEN 5-325 TAB PO PRN (15:15)
--- NOTE | 2016-11-06 15:59 | Anesthesiology Progress Note ---
Anesthesia Post Op Note Date & Time Nov 06, 2016 at 15:58 Vital Signs Pain Intensity: 2 Vital Signs Past 12 Hours Date Time Temp Pulse Resp B/P (MAP) Pulse Ox O2 Delivery O2 Flow Rate FiO2 11/06/16 15:45 36.4 70 18 145/63 98 2 11/06/16 15:35 36.4 67 18 143/66 96 2 11/06/16 15:25 70 18 146/73 96 11/06/16 15:15 72 18 141/67 100 10 11/06/16 15:05 71 18 143/65 100 10 11/06/16 14:57 36.3 81 18 149/48 97 10 11/06/16 08:00 97 Room Air 11/06/16 07:56 36.8 50 16 111/66 (81) 97 Room Air Notes Mental Status: alert / awake / arousable, participated in evaluation Pt Amnestic to Procedure: Yes Nausea / Vomiting: adequately controlled Pain: adequately controlled Airway Patency, RR, SpO2: stable & adequate BP & HR: stable & adequate Hydration State: stable & adequate Anesthetic Complications: no major complications apparent
--- NOTE | 2016-11-06 16:27 | Anesthesiology Progress Note ---
Anesthesia Post Op Note Date & Time Nov 06, 2016 at 16:27 Vital Signs Pain Intensity: 2 Vital Signs Past 12 Hours Date Time Temp Pulse Resp B/P (MAP) Pulse Ox O2 Delivery O2 Flow Rate FiO2 11/06/16 15:45 36.4 70 18 145/63 98 2 11/06/16 15:35 36.4 67 18 143/66 96 2 11/06/16 15:25 70 18 146/73 96 11/06/16 15:15 72 18 141/67 100 10 11/06/16 15:05 71 18 143/65 100 10 11/06/16 14:57 36.3 81 18 149/48 97 10 11/06/16 08:00 97 Room Air 11/06/16 07:56 36.8 50 16 111/66 (81) 97 Room Air Notes Mental Status: alert / awake / arousable, participated in evaluation Pt Amnestic to Procedure: Yes Nausea / Vomiting: adequately controlled Pain: adequately controlled Airway Patency, RR, SpO2: stable & adequate BP & HR: stable & adequate Hydration State: stable & adequate Anesthetic Complications: no major complications apparent
[2016-11-06] MEDS ORDERED: NURSING VERBAL MED ORDER ONE ×2 (18:45)
[2016-11-06] MEDS: HYDROCODONE/ACETAMOPHEN 5/325MG TAB PO PRN (19:24)
[2016-11-07] MEDS: HYDROCODONE/ACETAMOPHEN 5/325MG TAB PO PRN ×2 (02:09→11:21)
[2016-11-07] MEDS: PIPERACILL/TAZOBAC IV 3.375 GM in DEXTROSE 5% 100ML 100 ML IV SCH ×2 (05:01→11:21)
--- NOTE | 2016-11-07 06:59 | Surgery Progress Note ---
Surgery Progress Note Date of Service Nov 07, 2016. Subjective Post OP Day: 1 + pain controlled (Having very little pain), + diet (tolerated regular diet), No nausea, No vomiting Objective Vital Signs: Date Time Temp Pulse Resp B/P (MAP) Pulse Ox O2 Delivery O2 Flow Rate FiO2 11/07/16 00:00 Room Air 11/06/16 23:00 36.9 73 18 135/73 (93) 91 Room Air 11/06/16 17:08 36.1 81 18 134/77 (96) 94 Room Air 11/06/16 16:35 36.4 71 18 130/79 (96) 98 Room Air 11/06/16 16:30 96 Room Air 11/06/16 16:30 36.8 68 18 136/69 (91) 99 Nasal Cannula 2.0 11/06/16 15:45 36.4 70 18 145/63 98 2 11/06/16 15:35 36.4 67 18 143/66 96 2 11/06/16 15:25 70 18 146/73 96 11/06/16 15:15 72 18 141/67 100 10 11/06/16 15:05 71 18 143/65 100 10 11/06/16 14:57 36.3 81 18 149/48 97 10 11/06/16 08:00 97 Room Air 11/06/16 07:56 36.8 50 16 111/66 (81) 97 Room Air Abdomen: normal bowel sounds, non distended, soft Incision(s): clean, dry, intact, no drainage Assessment & Plan S/P lap roland Doing well Can D/C from surgical standpoint Instructions discussed
--- NOTE | 2016-11-07 07:01 | Discharge Instructions ---
Discharge Instructions Date of Service Nov 07, 2016. Admission Reason for Admission: FEVER Discharge Discharge Diagnosis / Problem: Same, S/P lap roland Discharge Goals Goal(s): Decrease discomfort Activity Recommendations Activity Limitations: per Instructions/Follow-up section Shower/Bathe: tomorrow (Shower only) . Instructions / Follow-Up Instructions / Follow-Up Post-Surgical ~ Discharge Instructions Activity Recommendations: - lifting limitation: (10 pounds for 2 weeks), - exercise/sex/sports limit: (nonstrenuous for 2 weeks), - driving or machine use limit: (none for 1 week), - Shower/bathe limit: (may shower beginning tomorrow) Diet: - Resume previous diet SPECIAL CARE INSTRUCTIONS: - May shower in 24 hours. Let water run over area and pat dry. - Leave steri strips on for one week. - Call the surgeon's office with any questions or concerns - - (ex. temperature higher than 101 degrees F, excessive bleeding or pain). MEDICATIONS: - Resume previous medications unless instructed otherwise by your surgeon. - Ibuprofen 600 mg every 6 hours with food - Percocet 1 every 4 hours, as needed for pain FOLLOW UP VISIT: - If not already scheduled, please call the office to schedule a two week follow-up appointment. Office number Current Hospital Diet Patient's current hospital diet: AHA Diet (Heart Healthy), Low Fat Diet Discharge Diet Recommended Diet: Regular Diet Procedures Procedures Performed: Laparoscopic Cholecystectomy Pending Studies Studies pending at discharge: no Medical Emergencies . Who to Call and When: Medical Emergencies: If at any time you feel your situation is an emergency, please call 911 immediately. . Non-Emergent Contact Non-Emergency issues call your: Primary Care Provider, Surgeon Call Non-Emergent contact if: your pain is worsening, wound has increased redness, wound has increased pain . "Provider Documentation" section prepared by Gama Underwood. . VTE Core Measure Inpt VTE Proph given/why not?: Treatment not indicated
[2016-11-07 07:06] LABS: 18KDIGG BAND NONREACTIVE (NONREACTIVE); 23KDIGG BAND NONREACTIVE (NONREACTIVE); 23KDIGM BAND REACTIVE (NONREACTIVE); 28KDIGG BAND NONREACTIVE (NONREACTIVE); 30KDIGG BAND NONREACTIVE (NONREACTIVE); 39KDIGG BAND NONREACTIVE (NONREACTIVE); 39KDIGM BAND NONREACTIVE (NONREACTIVE); 41KDIGG BAND NONREACTIVE (NONREACTIVE); 41KDIGM BAND REACTIVE (NONREACTIVE); 45KDIGG BAND NONREACTIVE (NONREACTIVE); 58KDIGG BAND NONREACTIVE (NONREACTIVE); 66KDIGG BAND NONREACTIVE (NONREACTIVE); 93KDIGG BAND NONREACTIVE (NONREACTIVE)
[2016-11-07] MEDS: FLUTICASONE PROPIONATE NA SPR 16 GM BTL NAE SCH (07:46)
[2016-11-07] MEDS: OXYBUTYNIN CHLORIDE 5 MG TABCR PO SCH (07:46)
[2016-11-07] MEDS: SUCRALFATE 1 GM/10 ML UDC PO SCH ×2 (07:46→11:21)
[2016-11-07] MEDS: SACCHAROMYCES BOUL (FLORASTOR) 250 MG CAP PO SCH (07:47)
[2016-11-07] MEDS: PANTOprazole SOD 40 MG TAB PO SCH (07:47)
[2016-11-07] MEDS: ESCITALOPRAM OXALATE 10 MG TAB PO SCH (07:47)
[2016-11-07] MEDS: DOXYCYCLINE HYCLATE 100 MG CAP PO SCH (07:47)
[2016-11-07 08:05] VITALS: BP 113/66; PULSE 80; TEMP 36.7; O2SAT 94
[2016-11-07] MEDS ORDERED: HYDR-5688 PO (09:46)
[2016-11-07] MEDS ORDERED: SACC250C3 PO (09:46)
[2016-11-07] MEDS ORDERED: DXY100 PO (09:46)
[2016-11-07] MEDS ORDERED: CRFUDL PO (09:46)
--- NOTE | 2016-11-07 09:47 | Discharge Instructions ---
Discharge Instructions Date of Service Nov 07, 2016. Admission Reason for Admission: FEVER Discharge Discharge Diagnosis / Problem: Chronic cholecystitis Discharge Goals Goal(s): Decrease discomfort, Improve function, Increase independence Activity Recommendations Activity Limitations: per Instructions/Follow-up section (as per Dr. Underwood) . Instructions / Follow-Up Instructions / Follow-Up Dr. Underwood in [address] Corley in 2-4 weeks Current Hospital Diet Patient's current hospital diet: AHA Diet (Heart Healthy), Low Fat Diet Discharge Diet Recommended Diet: Regular Diet Procedures Procedures Performed: Laparoscopic Cholecystectomy Pending Studies Studies pending at discharge: no Medical Emergencies . Who to Call and When: Medical Emergencies: If at any time you feel your situation is an emergency, please call 911 immediately. . Non-Emergent Contact Non-Emergency issues call your: Primary Care Provider, Surgeon . . "Provider Documentation" section prepared by Estela Schwartz. . VTE Core Measure Inpt VTE Proph given/why not?: Treatment not indicated
--- NOTE | 2016-11-07 09:57 | Discharge Summary ---
Discharge Summary Date of Service Nov 07, 2016. Discharge Summary Admission Date: Nov 01, 2016 at 18:54 Discharge Date: Nov 07, 2016 Principal Diagnosis: chronic cholecystitis Problems/Secondary Diagnoses: Lyme disease GERD Hyperlipidemia Depression Urinary urgency Procedures: lap roland 11/06 Consultations: Dr. Underwood Medication Reconciliation New Medications: Doxycycline Hyclate (Doxycycline Hyclate) 100 Mg Cap 100 MG PO BID for 14 Days, #28 CAP Hydrocodone/Acetaminophen 5MG/325MG ([place] 5MG/325MG) Tab 1 TAB PO Q4H PRN for Pain, #10 TAB PRN PAIN Saccharomyces Boulardii (Florastor) 250 Mg Cap 250 MG PO BID for 30 Days, #60 CAP Sucralfate (Sucralfate) 1 Gm/10 Ml Susp 1 GM PO QID for 30 Days Continued Medications: Escitalopram (Lexapro) 10 Mg Tab 10 MG PO DAILY Estrogens, Conjugated (Premarin) 14 Appln/30 Gm Cr 1 GM PV 3XWK Fenofibrate (Tricor) 160 Mg Tab 160 MG PO DAILY Fluticasone Propionate (Nasal) (Flonase Allergy Relief) 50 Mcg/Act Spr 2 SPRAYS SARAHI DAILY Oxybutynin Chloride (Oxybutynin Chloride ER) 10 Mg Tabcr 10 MG PO DAILY Pantoprazole (Protonix) 40 Mg Tab 40 MG PO DAILY Discharge Exam Pt is doing well today. She has been up ambulating without issue. Tolerating PO without issue. Has some abd pressure/bloating around the diaphragm area, but otherwise doing well. Pt denies fever, SOB, chest pain, n/v/c/d, LE pain or swelling. No further headaches. She has her curling iron out and states she is about to curl her hair in anticipation of d/c. ROS reviewed and otherwise neg. Physical Exam: General Appearance: WD/WN, no apparent distress Eyes: normal inspection, EOMI Respiratory/Chest: normal breath sounds, no respiratory distress Cardiovascular: regular rate, rhythm, no edema Abdomen / GI: non tender, soft, + distended Extremities: no calf tenderness, no pedal edema Neurologic/Psychiatric: alert, normal mood/affect, oriented x 3 Skin: normal color, warm/dry Hospital Course 75-year-old female, w/ PMHx of depression, dyslipidemia, urinary urgency, and GERD, who presented w/ fever and ongoing abdominal pain Abdominal pain appears to be related to chronic cholecystitis - BCx positive x1- growing gram positive bacilli, BCx x1- NGTD -- Repeat BCx neg - UCx- negative - ESR- WNL, CRP- mildly elevated at 9.9 - Lipase- WNL - Gallbladder US on 11/01: No gallstones or biliary ductal dilatation. Minimal sludge within the gallbladder with mild gallbladder distention. No convincing evidence for acute cholecystitis. - Abdominal CT on 11/01: Mild gallbladder distention without pericholecystic infiltration. The findings are not highly suggestive of acute cholecystitis although a hepatobiliary scan could be obtained if clinically indicated. No urinary calculi or hydronephrosis. No bowel obstruction. Probable fatty infiltration of the liver. - HIDA scan on 11/03: Findings suggestive chronic acalculus cholecystitis. Delayed and incomplete opacification of the gallbladder. Good flow of isotope to the small bowel. -- Cholecystectomy on 11/06 w/ Dr. Underwood - GI consulted, appreciate recommendations -- Continue Protonix 40 mg BID and Carafate 1 g QID -- f/u outpatient and possible EGD w/ Case if sx return -pt requests to continue carafate on d/c to help transition back to her usual diet. This can be used PRN and does not need continued further if pt continues to improve Elevated LFTs: Trending down, just minimally above normal on d/c Recent tick bite, lyme IgM +: - Western blot pending - Doxycycline 100 mg BID x14 days (started on 11/04) Loose stools, ?secondary to gallbladder disease: - C. diff negative x2 - Florastor 250 mg BID Mild hypokalemia- RESOLVED: - Replaced w/ PO KCL supplement GERD: Continue Protonix 40 mg QAM and Carafate QID Depression: Lexapro 10 mg daily Dyslipidemia: Fenofibrate 160 mg daily Urinary urgency: Oxybutynin 10 mg daily Total Time Spent: Greater than 30 minutes This includes examination of the patient, discharge planning, medication reconciliation, and communication with other providers. Discharge Instructions Please refer to the electronic Patient Visit Report (Discharge Instructions) for additional information. Follow-Up Dr. Underwood in [address] Corley in 2-4 weeks Additional Copies To Khalif Corley D.O.
[2016-11-07 11:05] VITALS: BP 113/66; PULSE 80; TEMP 36.7; O2SAT 94
== END 2016-11-07 13:32 | disposition home or self-care (01) | DRG 418 ==
LOC: C.EDB 10:53 → C.MS4W 18:54 → ENRESERV 19:02
PROVIDERS: ADMIT Internal Medicine; ATTEND Family Medicine
PROC: 0FT44ZZ Resection of Gallbladder, Percutaneous Endoscopic Approach (ICD-10-PCS; principal; 2016-11-06 13:15)
DX: K81.1 Chronic cholecystitis (principal); R78.81 Bacteremia; A69.20 Lyme disease, unspecified; E87.6 Hypokalemia; R94.5 Abnormal results of liver function studies; K21.9 Gastro-esophageal reflux disease without esophagitis; E78.5 Hyperlipidemia, unspecified; R39.15 Urgency of urination; R32 Unspecified urinary incontinence; D64.9 Anemia, unspecified; J30.9 Allergic rhinitis, unspecified; F32.9 Major depressive disorder, single episode, unspecified; Z79.890 Hormone replacement therapy; Z79.899 Other long term (current) drug therapy

== ENCOUNTER → 2017-01-13 | Outpatient (CLI) | payer OTHER ==
[~2017-01-13] MED LIST: CRFUDL PO; DTRSR/10 PO; DXY100 PO; ESCI10TA17 PO; FENO160T PO; FLUT0.15 NAE; HYDR-5688 PO; PANT40TA PO; PRMVC PV; SACC250C3 PO
[2017-01-13 12:39] LABS: URINE APPEARANCE CLOUDY (CLEAR); URINE BILIRUBIN NEG (NEG); URINE COLOR YELLOW; URINE NITRITE POS (NEG); URINE SPECIFIC GRAVITY 1.018 (1.000-1.030); UROBILINOGEN NEG (NEG)
[2017-01-13 12:50] LABS: MANUAL MICROSCOPIC REQUIRED? NO; REVIEW REQ? NO
== END | disposition home or self-care (01) ==
LOC: C.LABSPEC 17:56
PROVIDERS: ATTEND Physician Assistant
DX: R30.0 Dysuria (principal)

== ENCOUNTER 2018-09-15 11:46 | Inpatient (IN) ==
[2018-09-15] MEDS ORDERED: SODIUM CHLORIDE 0.9% 1000ML 1,000 ML IV ONE (12:43)
[2018-09-15] MEDS ORDERED: ALBUT/IPRATROP 3MG/0.5MG NEB 3 ML VIAL NEB STA ×2 (12:43→15:33)
[2018-09-15 13:19] LABS: Basophils # (auto) 0.01 K/uL (0-0.2); Basophils % (auto) 0.1 %; Eosinophils # (auto) 0.04 K/uL (0-0.5); Eosinophils % (auto) 0.3 %; Hematocrit (blood only) 33.8 % (37-47); Hemoglobin 12.2 g/dL (12.0-16.0); Immature Granulocytes # (auto) 0.05 K/uL (0.00-0.02); Immature Granulocytes % (auto) 0.4 %; Lymphocytes # (auto) 1.66 K/uL (1.2-3.4); Lymphocytes % (auto) 14.3 %; Mean Corpuscular Hgb Conc 36.1 g/dL (32-36); Mean Corpuscular Volume 90.9 fL (80-100); Mean Platelet Volume 9.6 fL (7.4-10.4); Monocytes % (auto) 7.7 %; Neutrophils # (auto) 8.96 K/uL (1.4-6.5); Neutrophils % (auto) 77.2 %; Platelet Count 210 K/uL (130-400); RDW Coefficient of Variation 13.8 % (11.5-14.5); RDW Standard Deviation 46.2 fL (36.4-46.3); Red Blood Count 3.72 M/uL (4.2-5.4); White Blood Count 11.62 K/uL (4.8-10.8)
[2018-09-15 13:40] LABS: Alanine Aminotransferase 22 U/L (12-78); Aspartate Aminotransferase 19 U/L (15-37); BUN Creatinine Ratio 12.6 (10-20); Blood Urea Nitrogen 11 mg/dl (7-18); Calcium 8.9 mg/dl (8.5-10.1); Carbon Dioxide 25 mmol/L (21-32); Chloride 102 mmol/L (98-107); Creatinine Clr Calc Pharmacy 51.5 ml/min; Est GFR (African American) 72.5; Est GFR (Non-African American) 62.5; Glucose 94 mg/dl (70-99); Magnesium 1.5 mg/dl (1.8-2.4); Potassium 3.3 mmol/L (3.5-5.1); Sodium 135 mmol/L (136-145)
[2018-09-15 13:45] LABS: Albumin Globulin Ratio 0.8 (0.9-2); Alkaline Phosphatase 53 U/L (45-117); Bilirubin,Total 0.7 mg/dl (0.2-1); Globulin 3.9 gm/dl (2.5-4.0); NT Pro B Type Natriuretic Pept 413 pg/ml (0-1800); Total Protein 6.9 gm/dl (6.4-8.2); Troponin I < 0.015 ng/ml (0-0.045)
[2018-09-15] MEDS ORDERED: MAGNESIUM SULFATE / D5W 1 GM/100 ML BAG IV ONE (14:24)
--- NOTE | 2018-09-15 14:53 | XRay Report ---
XR chest 2V routine CLINICAL HISTORY: cough, sob dyspnea COMPARISON STUDY: 11/01/2016 FINDINGS: Interval development of bibasilar parenchymal infiltrative change. Baseline emphysematous c hanges unaltered. Mid and upper lungs are clear. IMPRESSION: Bibasilar parenchymal infiltrates. Moderate emphysematous change. The above report was generated using voice recognition software. It may contain grammatical, syntax or spelling errors. Electronically signed by: Gama Huston M.D. 09/15/2018 2:52 PM
[2018-09-15] MEDS ORDERED: cefTRIAXone SODIUM 1,000 MG/50 ML BAG IV STA (15:15)
[2018-09-15] MEDS ORDERED: AZITHROMYCIN 250 MG TAB PO ONE (15:15)
--- NOTE | 2018-09-15 15:33 | Emergency Department Note ---
Entered by Bam Patricia acting as a scribe for Vera Ealry DO History of Present Illness General Chief complaint: Shortness of Breath/Dyspnea Stated complaint: referred by doctor, SOB, unclear thinking, falling Time Seen by Provider: 09/15/18 12:33 Source: patient History of Present Illness Onset (ago): week(s) 1 Location: chest (lungs) Pain Consistency: + other (persistent) Quality: + other (productive cough) Associated symptoms: + shortness of breath (exertional) and + weakness The patient is a 77 year old female who presents to the Emergency Room with complaints of a persistent cough for the past week. The patient reports that she was diagnosed with bronchitis one week ago, and she was given a six-day course of prednisone that she has finished without any improvement. It has also not improved with a cough suppressant or inhaler that she was given. Her cough is productive of brown phlegm without blood. She states that she is not short of breath at rest but becomes winded with cutting grass or climbing stairs. She states that she feels weak. She had chills a couple of days ago that are now resolved. She notes abdominal soreness that she attributes to her frequent cough. She states that her was recently ill with pneumonia. The daughter at bedside states that she is eating a smaller amount of food and drinking slightly less water than usual. She states that a couple of days ago the patient became dizzy, lost her balance and fell when walking to the kitchen. She denies a history of asthma or COPD. She states that she smoked for four years and then quit when she was 20. She notes a history of an arrhythmia for several years. She states that she has received the flu shot and pneumonia shot. Home Medications Home Medications Medication Instructions Recorded Confirmed Type Centrum Silver 1 tab PO DAILY 09/15/18 09/15/18 History cholecalciferol (vitamin D3) 1,000 unit PO DAILY 09/15/18 09/15/18 History [Vitamin D3] escitalopram oxalate 10 mg PO DAILY 09/15/18 09/15/18 History fenofibrate 160 mg PO DAILY 09/15/18 09/15/18 History fluticasone propionate 2 spray INTRANASAL DAILY 09/15/18 09/15/18 History montelukast 10 mg PO DAILY 09/15/18 09/15/18 History oxybutynin chloride 10 mg PO DAILY 09/15/18 09/15/18 History pantoprazole 40 mg PO DAILY 09/15/18 09/15/18 History ranitidine HCl 150 mg PO DAILY 09/15/18 09/15/18 History sucralfate 1 g PO DAILY 09/15/18 09/15/18 History amoxicillin-pot clavulanate 1 tab PO BIDM #7 tab 09/17/18 Rx azithromycin [Zithromax] 250 mg PO QAM #2 tab 09/17/18 Rx budesonide-formoterol [Symbicort] 2 puff INHALATION BID #1 g 09/17/18 Rx guaifenesin [Mucinex] 600 mg PO Q12 #14 tab 09/17/18 Rx Allergies Allergy/AdvReac Type Severity Reaction Status Date / Time iodine Allergy Intermediate HIVES Unverified 09/15/18 12:42 Past Med/Surg History Medical History GERD (gastroesophageal reflux disease) Depression Arrhythmia Family History Other Family history non-contributory Social History Communication Ability: Effective Messenger Copy Required: No Beliefs That Will Affect Care: None Current Living Situation: Spouse Other Information That Helps Us Care for You: No Feels Safe at Home: Yes Safety Concerns: Feels Safe At This Time Smoking Status: Former smoker Hx Alcohol Use: No Hx Substance Use: No Review of Systems See HPI for pertinent positives & negatives. and A total of 10 systems reviewed and were otherwise negative Physical Exam Vital Signs Vital Signs - 24 hr 09/15/18 11:51 09/15/18 12:17 09/15/18 12:19 Temperature 98.4 F Temperature Source Oral Sepsis Recent Fever Within 48 Hours No Sepsis New/Unexplained Change in Mental Status No Sepsis Action Taken by Nursing No Action Required Pulse Rate 86 Pulse Rate [Exercises] Pulse Rate [Left Finger] 78 Pulse Rhythm Regular Pulse Rhythm [Left Finger] Pulse Strength Normal Respiratory Rate 20 20 Respiratory Rate [Exercises] Respiratory Effort / Characteristics Non-Labored Non-Labored Respiratory Depth Normal Normal Respiratory Pattern Regular Regular Blood Pressure 105/69 Blood Pressure [Left Arm] 110/68 Blood Pressure Mean 81 Blood Pressure Mean [Left Arm] 82 Blood Pressure Position Sitting Pulse Oximetry 90 92 92 Pulse Oximetry [Exercises] Oxygen Delivery Method Room Air Room Air Room Air Oxygen Flow Rate 09/15/18 12:59 09/15/18 13:04 09/15/18 13:39 Temperature Temperature Source Sepsis Recent Fever Within 48 Hours Sepsis New/Unexplained Change in Mental Status Sepsis Action Taken by Nursing Pulse Rate Pulse Rate [Exercises] Pulse Rate [Left Finger] 77 87 Pulse Rhythm Pulse Rhythm [Left Finger] Regular Pulse Strength Respiratory Rate 16 20 Respiratory Rate [Exercises] Respiratory Effort / Characteristics Spontaneous Non-Labored Respiratory Depth Normal Respiratory Pattern Regular Blood Pressure Blood Pressure [Left Arm] 129/57 L Blood Pressure Mean Blood Pressure Mean [Left Arm] 81 Blood Pressure Position Pulse Oximetry 89 L 93 93 Pulse Oximetry [Exercises] Oxygen Delivery Method Room Air Nasal Cannula Nasal Cannula Oxygen Flow Rate 2 2 09/15/18 14:00 09/15/18 16:15 09/15/18 16:40 Temperature Temperature Source Sepsis Recent Fever Within 48 Hours Sepsis New/Unexplained Change in Mental Status Sepsis Action Taken by Nursing Pulse Rate Pulse Rate [Exercises] Pulse Rate [Left Finger] 95 H 85 88 Pulse Rhythm Pulse Rhythm [Left Finger] Regular Pulse Strength Respiratory Rate 18 18 20 Respiratory Rate [Exercises] Respiratory Effort / Characteristics Non-Labored Non-Labored Spontaneous Non-Labored Respiratory Depth Normal Normal Respiratory Pattern Regular Regular Blood Pressure Blood Pressure [Left Arm] 130/59 L 130/54 L Blood Pressure Mean Blood Pressure Mean [Left Arm] 82 79 Blood Pressure Position Pulse Oximetry 92 94 93 Pulse Oximetry [Exercises] Oxygen Delivery Method Nasal Cannula Nasal Cannula Nasal Cannula Oxygen Flow Rate 2 1 2 09/15/18 17:26 Temperature Temperature Source Sepsis Recent Fever Within 48 Hours Sepsis New/Unexplained Change in Mental Status Sepsis Action Taken by Nursing Pulse Rate Pulse Rate [Exercises] 114 H Pulse Rate [Left Finger] Pulse Rhythm Pulse Rhythm [Left Finger] Pulse Strength Respiratory Rate Respiratory Rate [Exercises] 24 Respiratory Effort / Characteristics Respiratory Depth Respiratory Pattern Blood Pressure Blood Pressure [Left Arm] Blood Pressure Mean Blood Pressure Mean [Left Arm] Blood Pressure Position Pulse Oximetry Pulse Oximetry [Exercises] 86 L Oxygen Delivery Method Room Air Oxygen Flow Rate GENERAL: alert, mildly ill appearing, well nourished, no distress, non-toxic EYE EXAM: normal conjunctiva, PERRL and EOM's grossly intact OROPHARYNX: no exudate, no erythema, lips, buccal mucosa, and tongue normal and mucous membranes are moist NECK: supple, no nuchal rigidity, no adenopathy, non-tender LUNGS: Clear to auscultation. No retractions, wheezing, rhonchi, or rales. Room air oxygen saturation 89%. Normal chest wall mechanics HEART: no murmurs, S1 normal and S2 normal ABDOMEN: abdomen soft, non-tender, normo-active bowel sounds, no masses, no rebound or guarding. BACK: Back is symmetrical on inspection and there is no deformity, no midline tenderness, no CVA tenderness. SKIN: no rashes and no bruising UPPER EXTREMITIES: upper extremities are grossly normal. FROM, nml pulses b/l. LOWER EXTREMITIES: No pitting edema. FROM, nml pulses b/l. NEURO EXAM: Normal sensorium, cranial nerves II-XII grossly intact, normal speech, no gross weakness of arms, no gross weakness of legs. Gross sensation in tact. Course 1236: The patient was evaluated in room C8. A complete history and physical examination were performed. 1525: I checked on the patient, who does not feel better after a nebulizer. 1600: I checked on the patient. She has not yet received her antibiotics. 1723: The patients oxygen saturation dropped to 86%. 1745: I consulted Dr. Aparicio [facility] Hospitalist. The patient will be reevaluated for hospitalization. Administered Medications Discontinued Medications Acetaminophen (Tylenol) 650 mg PO Q4H PRN PRN Reason: Pain or Fever Stop: 10/15/18 18:21 Last Admin: 09/16/18 20:29 Dose: 650 mg Documented by: [id number] Albuterol (Duoneb) 3 ml NEB NOW STA Stop: 09/15/18 12:44 Last Admin: 09/15/18 13:02 Dose: 3 ml Documented by: [id number] Albuterol (Duoneb) 3 ml NEB NOW STA Stop: 09/15/18 15:34 Last Admin: 09/15/18 16:15 Dose: 3 ml Documented by: [id number] Albuterol (Duoneb) 3 ml NEB QIDR [facility] Stop: 10/15/18 20:20 Last Admin: 09/17/18 11:11 Dose: 3 ml Documented by: [id number] Admin: 09/17/18 07:17 Dose: 3 ml Documented by: [id number] Admin: 09/16/18 18:54 Dose: 3 ml Documented by: [id number] Admin: 09/16/18 15:08 Dose: 3 ml Documented by: [id number] Admin: 09/16/18 11:23 Dose: 3 ml Documented by: [id number] Admin: 09/16/18 07:11 Dose: 3 ml Documented by: [id number] Admin: 09/16/18 01:24 Dose: 3 ml Documented by: [id number] Admin: 09/16/18 00:17 Dose: Not Given Documented by: [id number] Amoxicillin/Clavulanate Potassium (Augmentin 875mg) 1 tab PO BIDM [facility] Stop: 09/24/18 07:59 Last Admin: 09/17/18 10:09 Dose: 1 tab Documented by: [id number] Azithromycin (Zithromax) 500 mg PO NOW ONE Stop: 09/15/18 15:16 Last Admin: 09/15/18 16:19 Dose: 500 mg Documented by: [id number] [facility] Stop: 09/22/18 08:59 Last Admin: 09/17/18 10:09 Dose: 250 mg Documented by: [id number] Budesonide/Formoterol Fumarate (Symbicort 80mcg/4.5mcg) 2 puffs INH BID [facility] Stop: 10/17/18 09:14 Last Admin: 09/17/18 11:19 Dose: 2 puffs Documented by: [id number] Escitalopram Oxalate (Lexapro) 10 mg PO DAILY [facility] Stop: 10/16/18 08:59 Last Admin: 09/17/18 09:18 Dose: 10 mg Documented by: [id number] Admin: 09/16/18 08:25 Dose: 10 mg Documented by: [id number] Fenofibrate (Tricor) 145 mg PO DAILY [facility] Stop: 10/16/18 08:59 Last Admin: 09/17/18 09:19 Dose: 145 mg Documented by: [id number] Admin: 09/16/18 08:24 Dose: 145 mg Documented by: [id number] Fluticasone Propionate (Flonase) 2 sprays NA DAILY [facility] Stop: 10/16/18 08:59 Last Admin: 09/17/18 09:20 Dose: Not Given Documented by: [id number] Admin: 09/16/18 08:22 Dose: Not Given Documented by: [id number] Guaifenesin (Mucinex) 600 mg PO Q12 [facility] Stop: 10/15/18 20:59 Last Admin: 09/17/18 09:20 Dose: 600 mg Documented by: [id number] Admin: 09/16/18 20:29 Dose: 600 mg Documented by: [id number] Admin: 09/16/18 08:24 Dose: 600 mg Documented by: [id number] Admin: 09/15/18 22:02 Dose: 600 mg Documented by: [id number] Guaifenesin/Codeine Phosphate (Robitussin-Ac Sugar Free) 10 ml PO Q6H PRN PRN Reason: Cough Stop: 10/15/18 20:20 Last Admin: 09/15/18 22:02 Dose: 10 ml Documented by: [id number] Heparin Sodium (Porcine) (Heparin Sodium (Porcine)) 5,000 units SQ Q12 [facility] Stop: 10/15/18 20:59 Last Admin: 09/17/18 09:20 Dose: Not Given Documented by: [id number] Admin: 09/16/18 20:27 Dose: Not Given Documented by: [id number] Admin: 09/16/18 08:23 Dose: Not Given Documented by: [id number] Admin: 09/15/18 22:04 Dose: Not Given Documented by: [id number] Sodium Chloride (Nss 1000ml) 1,000 mls @ 999 mls/hr IV .Q1H1M ONE Stop: 09/15/18 13:43 Last Infusion: 09/15/18 14:39 Dose: 0 mls/hr Documented by: [id number] Admin: 09/15/18 13:39 Dose: 999 mls/hr Documented by: [id number] Magnesium Sulfate/Dextrose (Magnesium Sulfate / D5w) 1 gm in 100 mls @ 100 mls/hr IV ONE ONE Stop: 09/15/18 15:23 Last Infusion: 09/15/18 15:38 Dose: 0 mls/hr Documented by: [id number] Admin: 09/15/18 14:33 Dose: 100 mls/hr Documented by: [id number] Ceftriaxone Sodium (Rocephin) 1,000 mg in 50 mls @ 100 mls/hr IV NOW STA Stop: 09/15/18 15:44 Last Infusion: 09/15/18 18:35 Dose: 0 mls/hr Documented by: [id number] Admin: 09/15/18 16:19 Dose: 100 mls/hr Documented by: [id number] Sodium Chloride (Nss 1000ml) 1,000 mls @ 200 mls/hr IV .Q5H [facility] Stop: 10/15/18 15:44 Last Admin: 09/16/18 14:04 Dose: Not Given Documented by: [id number] Infusion: 09/16/18 14:04 Dose: 0 mls/hr Documented by: [id number] Infusion: 09/16/18 11:33 Dose: 0 mls/hr Documented by: [id number] Admin: 09/16/18 08:20 Dose: 200 mls/hr Documented by: [id number] Infusion: 09/16/18 08:15 Dose: 200 mls/hr Documented by: [id number] Admin: 09/16/18 03:15 Dose: 200 mls/hr Documented by: [id number] Infusion: 09/16/18 03:02 Dose: 200 mls/hr Documented by: [id number] Admin: 09/15/18 22:02 Dose: 200 mls/hr Documented by: [id number] Infusion: 09/15/18 21:19 Dose: 200 mls/hr Documented by: [id number] Admin: 09/15/18 16:19 Dose: 200 mls/hr Documented by: [id number] Ceftriaxone Sodium 1,000 mg/ (Dextrose) 50 mls @ 100 mls/hr IV Q24H [facility]; Protocol Stop: 09/22/18 15:59 Last Infusion: 09/16/18 18:23 Dose: 0 mls/hr Documented by: [id number] Admin: 09/16/18 16:40 Dose: 100 mls/hr Documented by: [id number] Azithromycin 250 mg/ Dextrose 252.5 mls @ 125 mls/hr IV DAILY [facility]; Protocol Stop: 09/22/18 08:59 Last Admin: 09/17/18 11:11 Dose: Not Given Documented by: [id number] Infusion: 09/16/18 10:36 Dose: 0 mls/hr Documented by: [id number] Admin: 09/16/18 08:26 Dose: 125 mls/hr Documented by: [id number] Montelukast Sodium (Singulair) 10 mg PO DAILY [facility] Stop: 10/16/18 08:59 Last Admin: 09/17/18 09:20 Dose: 10 mg Documented by: [id number] Admin: 09/16/18 08:25 Dose: 10 mg Documented by: [id number] Multivitamins/Minerals (Multivitamin W/ Minerals Tab) 1 tab PO DAILY [facility] Stop: 10/16/18 08:59 Last Admin: 09/17/18 09:18 Dose: 1 tab Documented by: [id number] Admin: 09/16/18 08:25 Dose: 1 tab Documented by: [id number] Oxybutynin Chloride (Ditropan Xl) 10 mg PO DAILY [facility] Stop: 10/16/18 08:59 Last Admin: 09/17/18 09:18 Dose: 10 mg Documented by: [id number] Admin: 09/16/18 08:22 Dose: 10 mg Documented by: [id number] Pantoprazole Sodium (Protonix) 40 mg PO DAILY [facility] Stop: 10/16/18 08:59 Last Admin: 09/17/18 09:18 Dose: 40 mg Documented by: [id number] Admin: 09/16/18 08:24 Dose: 40 mg Documented by: [id number] Potassium Chloride (Klor-Con M20) 40 meq PO NOW STA Stop: 09/15/18 18:29 Last Admin: 09/15/18 19:25 Dose: 40 meq Documented by: [id number] Ranitidine HCl (Zantac) 150 mg PO DAILY [facility] Stop: 10/16/18 08:59 Last Admin: 09/17/18 09:18 Dose: 150 mg Documented by: [id number] Admin: 09/16/18 08:26 Dose: 150 mg Documented by: [id number] Sucralfate (Carafate Tab) 1 gm PO DAILY@0700 [facility] Stop: 10/16/18 06:59 Last Admin: 09/17/18 05:59 Dose: 1 gm Documented by: [id number] Admin: 09/16/18 06:43 Dose: 1 gm Documented by: [id number] Vitamin D (Vitamin D3) 1,000 units PO DAILY [facility] Stop: 10/16/18 08:59 Last Admin: 09/17/18 09:18 Dose: 1,000 units Documented by: [id number] Admin: 09/16/18 08:26 Dose: 1,000 units Documented by: [id number] Medical Decision Making Differential Diagnosis Differential diagnosis includes: infections, reactive airway disease, pneumonia, pneumothorax, COPD, CHF, cardiac ischemia, pulmonary embolism, musculoskeletal, gastrointestinal, as well as others were entertained. Medical Records Attestation: I reviewed the patient's medical records. Home Medications Current Medication List: was personally reviewed by me Laboratory Data Attestation: I reviewed the patient's lab results. Result diagrams: 09/17/18 06:02 09/17/18 06:02 Lab Results 09/15/18 09/15/18 Range/Units 13:11 13:11 WBC 11.62 H (4.8-10.8) K/uL RBC 3.72 L (4.2-5.4) M/uL Hgb 12.2 (12.0-16.0) g/dL Hct 33.8 L (37-47) % MCV 90.9 (80-100) fL MCH 32.8 (25-34) pg MCHC 36.1 H (32-36) g/dL RDW Std Deviation 46.2 (36.4-46.3) fL RDW Coeff of Fabricio 13.8 (11.5-14.5) % Plt Count 210 (130-400) K/uL MPV 9.6 (7.4-10.4) fL Immature Gran % (Auto) 0.4 % Neut % (Auto) 77.2 % Lymph % (Auto) 14.3 % [place] % (Auto) 7.7 % Eos % (Auto) 0.3 % Baso % (Auto) 0.1 % Immature Gran # (Auto) 0.05 H (0.00-0.02) K/uL Neut # (Auto) 8.96 H (1.4-6.5) K/uL Lymph # (Auto) 1.66 (1.2-3.4) K/uL [place] # (Auto) 0.90 H (0.11-0.59) K/uL Eos # (Auto) 0.04 (0-0.5) K/uL Baso # (Auto) 0.01 (0-0.2) K/uL Sodium 135 L (136-145) mmol/L Potassium 3.3 L (3.5-5.1) mmol/L Chloride 102 (98-107) mmol/L Carbon Dioxide 25 (21-32) mmol/L Anion Gap 8.0 (3-11) BUN 11 (7-18) mg/dl Creatinine 0.89 (0.6-1.2) mg/dl Est Cr Clr Drug Dosing 51.5 ml/min Est GFR ( Amer) 72.5 Est GFR (Non-Af Amer) 62.5 BUN/Creatinine Ratio 12.6 (10-20) Glucose 94 (70-99) mg/dl Calcium 8.9 (8.5-10.1) mg/dl Magnesium 1.5 L (1.8-2.4) mg/dl Total Bilirubin 0.7 (0.2-1) mg/dl AST 19 (15-37) U/L ALT 22 (12-78) U/L Alkaline Phosphatase 53 (45-117) U/L Troponin I < 0.015 (0-0.045) ng/ml NT-Pro-B Natriuret Pep 413 (0-1800) pg/ml Total Protein 6.9 (6.4-8.2) gm/dl Albumin 3.0 L (3.4-5.0) gm/dl Globulin 3.9 (2.5-4.0) gm/dl Albumin/Globulin Ratio 0.8 L (0.9-2) Lipase 131 (73-393) U/L Imaging Data Radiologist's Impression: Radiology results as stated below per my review and the radiologist's interpretation: XR chest 2V routine CLINICAL HISTORY: cough, sob dyspnea COMPARISON STUDY: 11/01/2016 FINDINGS: Interval development of bibasilar parenchymal infiltrative change. Baseline emphysematous changes unaltered. Mid and upper lungs are clear. IMPRESSION: Bibasilar parenchymal infiltrates. Moderate emphysematous change. The above report was generated using voice recognition software. It may contain grammatical, syntax or spelling errors. Electronically signed by: Gama Huston M.D. 09/15/2018 2:52 PM ECG Data Attestation: I personally reviewed and interpreted this ECG as follows: Indication: SOB/dyspnea Rate (beats per minute): 75 Rhythm: sinus rhythm Findings: + other (normal axis, normal intervals, baseline artifact) and + PAC; no ST depression and no ST elevation Blood Pressure Blood Pressure Findings: Normal blood pressure Blood Pressure Disposition: did not require urgent referral MDM Narrative CURB 65 score 2 - moderate risk Pt here well appearing however markedly increased WOB with any movement or exertion. Room air sats 89%. No hx of COPD and no home oxygen. Generalized weakness and poor po intake. VS stable here. I do not suspect juvenal teremia/sepsis. Pt started on IV antibiotics, covered for CAP. Pt here aware of all results and in agreement with plan. Pt tolerating po here. No evidence of CHF. I do not suspect other cardiac etiology. Impression & Plan Pneumonia, Hypoxia, Hypomagnesemia, Generalized weakness Discharge Plan Visit Data *Final* Discharge Date/Time: 09/15/18 19:33 Chief Complaint: Shortness of Breath/Dyspnea Stated Complaint: referred by doctor, SOB, unclear thinking, falling ED Provider: Vera Early Discharge Problem: Pneumonia, Hypoxia, Hypomagnesemia, Generalized weakness Patient Disposition: Admitted As Inpatient Discharge Instructions Interventions: ED Discharge Assessment Last Done: 09/15/18 19:33 Discharge Problem: Pneumonia Qualifiers: Pneumonia type: due to unspecified organism Laterality: bilateral Lung location: lower lobe of lung Qualified Code(s): J18.1 - Lobar pneumonia, unspecified organism The scribe's documentation has been prepared under my direction and personally reviewed by me in its entirety. I confirm that the note above accurately reflects all work, treatment, procedures, and medical decision making performed by me.
[2018-09-15] MEDS: SODIUM CHLORIDE 0.9% 1000ML 1,000 ML IV SCH ×2 (16:19→22:02)
--- NOTE | 2018-09-15 18:08 | History & Physical Report ---
Date of Service September 15, 2018 Assessment & Plan (1) Pneumonia: Admit med tele Bilateral basal infiltrates seen on Xray Continue ceftriaxone, azithromycin, nebs started in ED Blood cultures CBC, PRP in the am (2) Acute respiratory failure with hypoxia: Patient with saturations in the mid 80s in the ED Titrate O2 per protocol (3) Anxiety: Continue home escitalopram (4) GERD (gastroesophageal reflux disease): continue ranitidine, pantoprazole, sucralfate (5) Hypomagnesemia: 1.5 on admission, replaced (6) Hypokalemia: 3.3 on admission, replaced (7) DVT prophylaxis: heparin subq, SCDs History of Present Illness Ms. Rubin has been suffering with bronchitis for over a week. Her has been sick as well. She did a prednisone taper which did not help. She had sweats over the night Thursday but no fever. Here in the Emergency Department her oxygenation dropped to the mid 80s with ambulation Pmhx: GERD, dyslipidemia, anxiety Social: stopped smoking 50 years ago, lives with her and her daughter, she was a former business segment manager Family hx: Dad of black lung, mother of a stroke when she was 49 Primary Care Provider: Renae Khoury DO Allergies Allergy/AdvReac Type Severity Reaction Status Date / Time iodine Allergy Intermediate HIVES Unverified 09/15/18 12:42 Home Medications Home Medications Medication Instructions Recorded Confirmed Type cholecalciferol (vitamin D3) 1,000 unit PO DAILY 09/15/18 09/15/18 History [Vitamin D3] escitalopram oxalate 10 mg PO DAILY 09/15/18 09/15/18 History fenofibrate 160 mg PO DAILY 09/15/18 09/15/18 History fluticasone propionate 2 spray INTRANASAL DAILY 09/15/18 09/15/18 History montelukast 10 mg PO DAILY 09/15/18 09/15/18 History loumezyl-eze-XK-lycopen-lutein 1 tab PO DAILY 09/15/18 09/15/18 History [Centrum Silver] oxybutynin chloride 10 mg PO DAILY 09/15/18 09/15/18 History pantoprazole 40 mg PO DAILY 09/15/18 09/15/18 History ranitidine HCl 150 mg PO DAILY 09/15/18 09/15/18 History sucralfate 1 g PO DAILY 09/15/18 09/15/18 History Past Med/Surg History Medical History GERD (gastroesophageal reflux disease) Depression Arrhythmia Family History Other Family history non-contributory Social History Communication Ability: Effective Electrical Laboratory Technician Required: No Beliefs That Will Affect Care: None Current Living Situation: Spouse Other Information That Helps Us Care for You: No Feels Safe at Home: Yes Safety Concerns: Feels Safe At This Time Smoking Status: Former smoker Hx Alcohol Use: No Hx Substance Use: No Review of Systems Review of Systems: All systems reviewed & are unremarkable except as noted in HPI & below Physical Exam Physical Exam: General: no distress Eyes: normal inspection, PERLL Respiratory: chest non tender, crackles bilateral bases, no respiratory dist ress, no accessory muscle use Cardiac: regular rate and rhythm, no rub or gallop, no murmur, no edema, no jvd GI/: active bowel sounds, no abd pain or tenderness, soft, non distended Extremities: normal range of motion, normal strength, non tender Neuro:oriented x 3, moves all extremities Psych: alert, normal mood and affect Skin: normal color, dry Results & Data Vital Signs (Past 12 Hours) Vital Signs Temp Pulse Pulse Pulse Resp Resp BP 09/15/18 17:26 114 H 24 09/15/18 16:40 88 20 09/15/18 16:15 85 18 09/15/18 14:00 95 H 18 09/15/18 13:39 87 20 09/15/18 13:04 77 16 09/15/18 12:59 09/15/18 12:19 78 20 09/15/18 12:17 09/15/18 11:51 36.9 C 86 20 105/69 BP Pulse Ox Pulse Ox 09/15/18 17:26 86 L 09/15/18 16:40 130/54 L 93 09/15/18 16:15 94 09/15/18 14:00 130/59 L 92 09/15/18 13:39 129/57 L 93 09/15/18 13:04 93 09/15/18 12:59 89 L 09/15/18 12:19 110/68 92 09/15/18 12:17 92 09/15/18 11:51 90 Code Status & VTE Plan Code Status full code VTE Prophylaxis Plan VTE Prophylaxis will be ordered: Yes Supervising Physician Co-Signing Physician Notes CUSTOMER RELATIONS SPECIALIST Physician Supervision Note: I discussed with Jahaira Lee NP and agree with findings and plan as documented in the note. Any exceptions or clarifications are listed here: None I did not really seen and examined this patient in the ER patient was having a fairly nonproductive cough on exam she is a bilateral basilar crackles. Her x- ray is consistent with bibasilar pneumonia with concern for atypical pneumonia. Patient is placed on typical community associated pneumonia medications at this time we will evaluate her progress. The pain is concerning factor which required admission was acute respiratory failure with hypoxia which is unusual for her. Her initial chest x-ray did show signs of COPD and she does have a distant smoking history. We discussed this for some time Documented By: Gael Zuleta (1) Pneumonia Laterality: bilateral Lung location: lower lobe of lung Pneumonia type: due to unspecified organism Qualified Code(s): J18.1 - Lobar pneumonia, unspecified organism
[2018-09-15] MEDS ORDERED: POLYETHYLENE (MIRALAX) 17 GM PACK PO PRN (18:22)
[2018-09-15] MEDS ORDERED: ACETAMINOPHEN 325 MG TAB PO PRN (18:22)
[2018-09-15] MEDS ORDERED: POTASSIUM CHLORIDE 20 MEQ TABCR PO STA (18:28)
[2018-09-15] MEDS ORDERED: GUAIFENESIN/CODEINE 200MG/20MG 10ML UDC PO PRN (20:21)
[2018-09-15] MEDS: guaiFENesin 600 MG TABCR PO SCH (22:02)
[2018-09-15] MEDS: HEPARIN SOD 5,000 UNIT/0.5 ML VIAL SQ SCH (22:04)
[2018-09-15 22:09] LABS: INR 1.1 (0.9-1.1); Prothrombin Time 10.9 Seconds (9.0-12.0)
[2018-09-16] MEDS: ALBUT/IPRATROP 3MG/0.5MG NEB 3 ML VIAL NEB SCH ×6 (00:17→18:54)
[2018-09-16] MEDS: SODIUM CHLORIDE 0.9% 1000ML 1,000 ML IV SCH ×3 (03:15→14:04)
[2018-09-16] MEDS: SUCRALFATE 1 GM TAB PO SCH (06:43)
[2018-09-16 07:19] LABS: Hematocrit (blood only) 30.2 % (37-47); Mean Corpuscular Hgb Conc 36.4 g/dL (32-36); Mean Corpuscular Volume 91.5 fL (80-100); Mean Platelet Volume 9.6 fL (7.4-10.4); Platelet Count 191 K/uL (130-400); RDW Coefficient of Variation 14.1 % (11.5-14.5); RDW Standard Deviation 47.3 fL (36.4-46.3); White Blood Count 9.07 K/uL (4.8-10.8)
[2018-09-16 07:57] LABS: BUN Creatinine Ratio 10.2 (10-20); Calcium 8.2 mg/dl (8.5-10.1); Creatinine Clr Calc Pharmacy 59.5 ml/min; Est GFR (African American) 86.3; Est GFR (Non-African American) 74.5; Potassium 3.5 mmol/L (3.5-5.1)
[2018-09-16] MEDS: FLUTICASONE PROPIONATE NA SPR 16 GM BTL SCH (08:22)
[2018-09-16] MEDS: OXYBUTYNIN CHLORIDE XL 5 MG TABCR PO SCH (08:22)
[2018-09-16] MEDS: HEPARIN SOD 5,000 UNIT/0.5 ML VIAL SQ SCH ×2 (08:23→20:27)
[2018-09-16] MEDS: FENOFIBRATE NANOCRYSTALLIZED 145 MG TABLET PO SCH (08:24)
[2018-09-16] MEDS: PANTOprazole 40 MG TAB PO SCH (08:24)
[2018-09-16] MEDS: guaiFENesin 600 MG TABCR PO SCH ×2 (08:24→20:29)
[2018-09-16] MEDS: CEROVITE ADV FORMULA TAB PO SCH (08:25)
[2018-09-16] MEDS: MONTELUKAST SODIUM 10 MG TABLET PO SCH (08:25)
[2018-09-16] MEDS: ESCITALOPRAM OXALATE 10 MG TAB PO SCH (08:25)
[2018-09-16] MEDS: AZITHROMYCIN 250 MG in DEXTROSE 5% 250 ML IV SCH (08:26)
[2018-09-16] MEDS: CHOLECALCIFEROL 1,000 UNITS TAB PO SCH (08:26)
--- NOTE | 2018-09-16 12:10 | Hospitalist Progress Note ---
Date of Service September 16, 2018 Assessment & Plan (1) Pneumonia: Bilateral basal infiltrates seen on Xray Continue ceftriaxone, azithromycin, nebs started in ED Blood cultures ngtd (2) Acute respiratory failure with hypoxia: Patient with saturations in the mid 80s in the ED Titrate O2 per protocol (3) Anxiety: Continue home escitalopram (4) GERD (gastroesophageal reflux disease): continue ranitidine, pantoprazole, sucralfate (5) Hypomagnesemia: 1.5 on admission, replaced (6) Hypokalemia: 3.3 on admission, replaced (7) DVT prophylaxis: heparin subq, SCDs Dispo: will encourage ambulation today and await cultures. Will likely be able to return home tomorrow. Subjective Ms. Rubin is feeling better. She is coughing but it is not very productive. She is no longer requiring supplemental O2. Review of Systems Review of Systems: All systems reviewed & are unremarkable except as noted in HPI & below Physical Exam Physical Exam: General: no distress Eyes: normal inspection, PERLL Respiratory: chest non tender, clear to auscultation, normal breath sounds, no respiratory distress, no accessory muscle use Cardiac: regular rate and rhythm, no rub or gallop, no murmur, no edema, no jvd GI/: active bowel sounds, no abd pain or tenderness, soft, non distended Extremities: normal range of motion, normal strength, non tender Neuro/Psych: alert and oriented x 3, normal mood and affect Skin: normal color, dry Results & Data Vital Signs (Past 12 Hours) Vital Signs Temp Pulse Pulse Resp BP Pulse Ox 09/16/18 12:00 36.9 C 84 18 143/67 H 94 09/16/18 11:24 87 18 90 09/16/18 09:30 67 09/16/18 07:13 68 18 93 09/16/18 07:00 36.8 C 65 18 121/67 99 09/16/18 03:39 37.1 C 77 20 131/67 94 09/16/18 01:24 68 16 96 (1) Pneumonia Laterality: bilateral Lung location: lower lobe of lung Pneumonia type: due to unspecified organism Qualified Code(s): J18.1 - Lobar pneumonia, unspecified organism
[2018-09-16] MEDS ORDERED: cefTRIAXone SODIUM 1,000 MG in DEXTROSE 5% 50 ML IV SCH (16:00)
[2018-09-17] MEDS: SUCRALFATE 1 GM TAB PO SCH (05:59)
[2018-09-17 06:41] LABS: Hematocrit (blood only) 32.1 % (37-47); Hemoglobin 11.3 g/dL (12.0-16.0); Mean Corpuscular Hgb Conc 35.2 g/dL (32-36); Mean Corpuscular Volume 92.2 fL (80-100); Mean Platelet Volume 9.7 fL (7.4-10.4); Platelet Count 231 K/uL (130-400); RDW Coefficient of Variation 14.5 % (11.5-14.5); RDW Standard Deviation 48.7 fL (36.4-46.3); Red Blood Count 3.48 M/uL (4.2-5.4); White Blood Count 10.04 K/uL (4.8-10.8)
[2018-09-17 07:04] LABS: BUN Creatinine Ratio 10.9 (10-20); Creatinine Clr Calc Pharmacy 52.7 ml/min; Est GFR (African American) 74.5; Est GFR (Non-African American) 64.3; Potassium 4.1 mmol/L (3.5-5.1)
[2018-09-17] MEDS: ALBUT/IPRATROP 3MG/0.5MG NEB 3 ML VIAL NEB SCH ×2 (07:17→11:11)
[2018-09-17] MEDS ORDERED: AZITHROMYCIN 250 MG TAB PO SCH (09:15)
[2018-09-17] MEDS ORDERED: BUDESONIDE/FORMOTEROL FUMARATE 80/4.5 60 PUFFS/INHALER INH SCH (09:15)
[2018-09-17] MEDS: CEROVITE ADV FORMULA TAB PO SCH (09:18)
[2018-09-17] MEDS: CHOLECALCIFEROL 1,000 UNITS TAB PO SCH (09:18)
[2018-09-17] MEDS: PANTOprazole 40 MG TAB PO SCH (09:18)
[2018-09-17] MEDS: OXYBUTYNIN CHLORIDE XL 5 MG TABCR PO SCH (09:18)
[2018-09-17] MEDS: ESCITALOPRAM OXALATE 10 MG TAB PO SCH (09:18)
[2018-09-17] MEDS: FENOFIBRATE NANOCRYSTALLIZED 145 MG TABLET PO SCH (09:19)
[2018-09-17] MEDS: guaiFENesin 600 MG TABCR PO SCH (09:20)
[2018-09-17] MEDS: FLUTICASONE PROPIONATE NA SPR 16 GM BTL SCH (09:20)
[2018-09-17] MEDS: MONTELUKAST SODIUM 10 MG TABLET PO SCH (09:20)
[2018-09-17] MEDS: HEPARIN SOD 5,000 UNIT/0.5 ML VIAL SQ SCH (09:20)
[2018-09-17] MEDS ORDERED: AMOXICILLIN/CLAVULANATE 875 MG TAB PO SCH (09:45)
--- NOTE | 2018-09-17 10:30 | Discharge Summary ---
Date of Service September 17, 2018 Admission HPI Per Admitting Provider Ms. Rubin has been suffering with bronchitis for over a week. Her has been sick as well. She did a prednisone taper which did not help. She had sweats over the night Thursday but no fever. 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 Family hx: Dad of black lung, mother of a stroke when she was 49 Principal Diagnosis Pneumonia Discharge Exam Constitutional WD/WN, vitals as above Respiratory normal respiratory effort, lungs clear to auscultation Cardiovascular RRR, no murmur, no edema Gastrointestinal (Abdomen) Inspection/Auscultation: normal bowel sounds; abdomen not distended Percussion/Palpation: abdomen nontender Musculoskeletal no cyanosis or clubbing, extremities motor strength 5/5 Skin no rashes, warm and dry Neurologic moves all extremities and awake Psychiatric A+Ox3, euthymic affect Discharge Data Allergies Allergy/AdvReac Type Severity Reaction Status Date / Time iodine Allergy Intermediate HIVES Unverified 09/15/18 12:42 Hospital Course (1) Pneumonia: with hopoxia - Patient with saturations in the mid 80s in the ED Titrate O2 per protocol while in patient - has been on RA for 24 hours Bilateral basal infiltrates seen on Xray Given IV ceftriaxone, azithromycin, and nebs inpatient, will discharge with Symbicort, po azithromycin and augment for 5 day regimen EKG wnl,rechecked EKG before discharge and QT remains wnl. Blood cultures ngtd (2) Anxiety: Continue home escitalopram (3) GERD (gastroesophageal reflux disease): continue ranitidine, pantoprazole, sucralfate (4) Hypomagnesemia: 1.5 on admission, replaced (5) Hypokalemia: 3.3 on admission, replaced (6) DVT prophylaxis: heparin subq, SCDs Total Time Total Time Spent Total Time Spent (In Minutes): greater than 30 minutes Discharge Plan Discharge Items Patient Disposition: Home - Self-Care Reason For Visit: PNEUMONIA Discharge Diagnosis: Pneumonia Discharge Goals: Improve disease control and Improve function Activity: Resume your previous activity Activity Comment: gradually as tolerated Non-emergency contact: Primary Care Provider Call non-emergency contact if: you have any medication questions, your symptoms worsen and you have a fever Follow-up/Referrals: Renae Khoury, [Primary Care Provider] - Diet: Regular Addtl Provider Instructions: Please see your primary care provider within about a week. Prescriptions: New azithromycin [Zithromax] 250 mg Tablet 250 mg PO QAM Qty: 2 RF: 0 amoxicillin-pot clavulanate 875-125 mg Tablet 1 tab PO BIDM Qty: 7 RF: 0 guaifenesin [Mucinex] 600 mg Tablet Extended Release 12hr 600 mg PO Q12 Qty: 14 RF: 0 Symbicort 80-4.5 mcg/actuation Hfa Aerosol Inhaler 2 puff inhalation BID Qty: 1 RF: 0 Continued oxybutynin chloride 10 mg tablet extended release 24hr 10 mg PO DAILY RF: 0 sucralfate 1 gram tablet 1 g PO DAILY RF: 0 pantoprazole 40 mg tablet,delayed release (DR/EC) 40 mg PO DAILY RF: 0 ranitidine HCl 150 mg Tablet 150 mg PO DAILY RF: 0 montelukast 10 mg tablet 10 mg PO DAILY RF: 0 fluticasone propionate 50 mcg/actuation spray,suspension 2 spray intranasal DAILY RF: 0 escitalopram oxalate 10 mg tablet 10 mg PO DAILY RF: 0 fenofibrate 160 mg tablet 160 mg PO DAILY RF: 0 cholecalciferol (vitamin D3) [Vitamin D3] 1,000 unit Capsule 1,000 unit PO DAILY RF: 0 Centrum Silver 0.4-300-250 mg-mcg-mcg Tablet 1 tab PO DAILY RF: 0 Stand-Alone Forms: [facility] Discharge Orders: Discharge Order (Routine); Ordered 09/17/18 Ordered By: Jahaira Lee Admission Data Admit Date/Time: 09/15/18 18:22 Attending Provider: Gael Zuleta Admit Provider: Gael Zuleta Primary Care Provider: Renae Khoury Service: Telemetry Medical Other Interventions: Discharge Summary Assessment (RN) Last Done: 09/17/18 11:29
[2018-09-17] MEDS: AZITHROMYCIN 250 MG in DEXTROSE 5% 250 ML IV SCH (11:11)
== END 2018-09-17 13:16 | disposition home or self-care (01) | DRG 193 ==
LOC: ED 11:46 → 2W 18:22
DX: E87.6 Hypokalemia; F41.9 Anxiety disorder, unspecified; J18.9 Pneumonia, unspecified organism; E83.42 Hypomagnesemia; R53.1 Weakness; J96.01 Acute respiratory failure with hypoxia; F32.9 Major depressive disorder, single episode, unspecified; Z79.899 Other long term (current) drug therapy; K21.9 Gastro-esophageal reflux disease without esophagitis